=== PATIENT | female | born 1935 | race Caucasian/White ===

== ENCOUNTER 2017-11-29 10:06 | Emergency (ER) | payer MEDICARE ==
[~2017-11-29] VITALS: Ht 160 cm; Wt 65.8 kg
[~2017-11-29 10:06] MED LIST: ALPR.5 PO; LEVCAR2510 PO; Norco 5-325 Ta1 EACH PO; OXYC1TAB11; Ventolin/Prove6.7 GM
[2017-11-29] MEDS ORDERED: ZUBSOLV 1.4-0.1 EACH PO (10:37)
[2017-11-29] MEDS ORDERED: CYCL10 PO (10:38)
[2017-11-29] MEDS ORDERED: Keflex500 MG PO (12:22)
== END 2017-11-29 12:40 | disposition home or self-care (01) ==
LOC: ER 10:06
DX: L03.031 Cellulitis of right toe (principal); J44.9 Chronic obstructive pulmonary disease, unspecified; F17.200 Nicotine dependence, unspecified, uncomplicated; Z79.899 Other long term (current) drug therapy
CPT/HCPCS: 73630; 99282-25

== ENCOUNTER 2018-05-19 10:32 | Emergency (ER) | payer MEDICARE ==
[~2018-05-19] VITALS: Ht 160 cm; Wt 59.0 kg
[~2018-05-19 10:32] MED LIST changes: +CYCL10 PO; +Keflex500 MG PO; +SINEMET PO; +TRAM50 PO; +ZUBSOLV 1.4-0.1 EACH PO
[2018-05-19 11:50] LABS: BASOPHILS ABSOLUTE AUTO 0.11 K/mm3 (0.00-0.23); BASOPHILS PERCENT AUTO 1 % (0-2); EOSINOPHILS ABSOLUTE AUTO 0.08 K/mm3 (0.00-0.68); EOSINOPHILS PERCENT AUTO 1 % (0-6); Hemoglobin 17.7 g/dL (11.5-16.0); IMMATURE GRAN ABSOLUTE AUTO 0.11 K/mm3 (0.00-0.10); IMMATURE GRAN PERCENT AUTO 1 % (0-1); LYMPHOCYTES ABSOLUTE AUTO 1.54 K/mm3 (0.84-5.20); LYMPHOCYTES PERCENT AUTO 9 % (21-46); MONOCYTES ABSOLUTE AUTO 2.47 K/mm3 (0.16-1.47); MONOCYTES PERCENT AUTO 14 % (4-13); Mean Corpuscular HGB 24.4 pg (26.0-34.0); Mean Corpuscular HGB Conc 30.9 g/dL (31.5-36.5); Mean Corpuscular Volume 79 fL (80-100); Mean Platelet Volume 9.1 fL (9.1-12.4); NEUTROPHILS ABSOLUTE AUTO 13.35 K/mm3 (1.96-9.15); NEUTROPHILS PERCENT AUTO 76 % (41-73); Platelet Count 611 K/mm3 (150-400); RDW Coefficient Variation 18.4 % (11.7-14.2); RDW Standard Deviation 48.5 fL (35.1-46.3); Red Blood Cell Count 7.24 M/mm3 (3.80-5.20); White Blood Cell Count 17.66 K/mm3 (4.00-11.30)
[2018-05-19 11:53] LABS: Hematocrit 57.2 % (33.0-51.0)
[2018-05-19 12:12] LABS: Alanine Aminotransfer (ALT/SGP 7 U/L (12-78); Albumin, Blood 3.7 g/dL (3.4-5.0); Albumin/Globulin Ratio 0.8 (0.8-1.8); Alk Phos 63 U/L (50-136); Anion Gap 6 mmol/L (6-16); Aspartate Aminotrans (AST/SGOT 18 U/L (12-37); Bilirubin, Total 0.7 mg/dL (0.1-1.0); Blood Urea Nitrogen 14 mg/dL (8-24); Bun/Creatinine Ratio 19.3 (12.0-20.0); CO2, Blood 29 mmol/L (21-32); Calcium, Blood 8.8 mg/dL (8.5-10.1); Chloride, Blood 97 mmol/L (98-108); Creatinine, Blood 0.73 mg/dL (0.40-1.00); Globulin, Blood 4.6 g/dL (2.2-4.0); Glomerular Filtration Rate >60 (60-); Glucose, Blood 111 mg/dL (70-99); Potassium, Blood 3.7 mmol/L (3.5-5.5); Sodium, Blood 132 mmol/L (136-145); Total Protein, Blood 8.3 g/dL (6.4-8.2)
[2018-05-19] MEDS ORDERED: Augmentin 875-1 EACH PO (12:18)
[2018-05-19] MEDS ORDERED: Norco 5-325 Ta1 EACH PO (12:18)
== END 2018-05-19 12:46 | disposition home or self-care (01) ==
LOC: ER 10:32
PROVIDERS: Emergency Medicine
DX: I73.9 Peripheral vascular disease, unspecified (principal); Z79.899 Other long term (current) drug therapy; J44.9 Chronic obstructive pulmonary disease, unspecified; F17.200 Nicotine dependence, unspecified, uncomplicated
CPT/HCPCS: 36415; 73630; 80053; 85025; 85651; 86140; 96374; 99283-25; J3010

== ENCOUNTER 2019-01-22 15:35 | Emergency (ER) | payer MEDICARE ==
[~2019-01-22] VITALS: Ht 160 cm; Wt 59.0 kg
[~2019-01-22 15:35] MED LIST changes: +Augmentin 875-1 EACH PO
[2019-01-22] MEDS ORDERED: LIDO700A20 TOP (18:00)
== END 2019-01-22 18:39 | disposition home or self-care (01) ==
LOC: ER 15:35
DX: S30.0XXA Contusion of lower back and pelvis, initial encounter (principal); F17.200 Nicotine dependence, unspecified, uncomplicated; Z79.899 Other long term (current) drug therapy; W01.10XA Fall on same level from slipping, tripping and stumbling with subsequent striking against unspecified object, initial encounter
CPT/HCPCS: 72100; 99283-25

== ENCOUNTER → 2019-05-18 | Outpatient (CLI) | payer MEDICARE ==
[~2019-05-18] MED LIST changes: +LIDO700A20 TOP
[2019-05-18 16:47] LABS: Hematocrit 52.5 % (33.0-51.0); Hemoglobin 15.8 g/dL (11.5-16.0); Mean Corpuscular HGB 22.9 pg (26.0-34.0); Mean Corpuscular HGB Conc 30.1 g/dL (31.5-36.5); Mean Corpuscular Volume 76 fL (80-100); Mean Platelet Volume 10.1 fL (9.1-12.4); RDW Coefficient Variation 20.5 % (11.7-14.2); RDW Standard Deviation 51.4 fL (35.1-46.3); White Blood Cell Count 16.02 K/mm3 (4.00-11.30)
[2019-05-18 16:52] LABS: Anion Gap 6 mmol/L (6-16); Blood Urea Nitrogen 14 mg/dL (8-24); Bun/Creatinine Ratio 21.2 (12.0-20.0); CO2, Blood 30 mmol/L (21-32); Calcium, Blood 8.5 mg/dL (8.5-10.1); Chloride, Blood 102 mmol/L (98-108); Creatinine, Blood 0.66 mg/dL (0.40-1.00); Glomerular Filtration Rate >60 (60-); Glucose, Blood 67 mg/dL (70-99); Potassium, Blood 3.5 mmol/L (3.5-5.5); Sodium, Blood 138 mmol/L (136-145)
[2019-05-18 17:18] LABS: Platelet Count 1159 K/mm3 (150-400)
[2019-05-18 17:55] LABS: BAND PERCENT MAN 3 % (0-8); BASOPHILS ABSOLUTE MAN 0.64 K/mm3 (0.00-0.23); BASOPHILS PERCENT MAN 4 % (0-2); EOSINOPHILS PERCENT MAN 0 % (0-6); LYMPHOCYTES ABSOLUTE MAN 3.04 K/mm3 (0.84-5.20); LYMPHOCYTES PERCENT MAN 19 % (21-46); MONOCYTES PERCENT MAN 15 % (4-13); NEUTROPHILS ABSOLUTE MAN 9.93 K/mm3 (1.96-9.15); SEG NEUTROPHILS PERCENT MAN 59 % (41-73); TOTAL CELLS COUNTED 100
== END | disposition home or self-care (01) ==
LOC: LAB EV 16:42 → LAB SHORT 16:42
PROVIDERS: Physician Assistant Surgical
DX: R06.02 Shortness of breath (principal); R06.00 Dyspnea, unspecified
CPT/HCPCS: 80048; 85025

== ENCOUNTER 2019-05-19 10:34 | Emergency (ER) | payer MEDICARE ==
[~2019-05-19] VITALS: Ht 157.5 cm; Wt 56.2 kg
[2019-05-19 11:40] LABS: BASOPHILS ABSOLUTE AUTO 0.18 K/mm3 (0.00-0.23); BASOPHILS PERCENT AUTO 1 % (0-2); EOSINOPHILS ABSOLUTE AUTO 0.21 K/mm3 (0.00-0.68); EOSINOPHILS PERCENT AUTO 1 % (0-6); Hematocrit 53.2 % (33.0-51.0); Hemoglobin 15.6 g/dL (11.5-16.0); IMMATURE GRAN ABSOLUTE AUTO 0.43 K/mm3 (0.00-0.10); IMMATURE GRAN PERCENT AUTO 3 % (0-1); LYMPHOCYTES ABSOLUTE AUTO 2.18 K/mm3 (0.84-5.20); LYMPHOCYTES PERCENT AUTO 13 % (21-46); MONOCYTES PERCENT AUTO 12 % (4-13); Mean Corpuscular HGB 22.5 pg (26.0-34.0); Mean Corpuscular HGB Conc 29.3 g/dL (31.5-36.5); Mean Corpuscular Volume 77 fL (80-100); Mean Platelet Volume 10.1 fL (9.1-12.4); NEUTROPHILS ABSOLUTE AUTO 11.49 K/mm3 (1.96-9.15); NEUTROPHILS PERCENT AUTO 70 % (41-73); RDW Coefficient Variation 19.9 % (11.7-14.2); RDW Standard Deviation 51.6 fL (35.1-46.3); Red Blood Cell Count 6.93 M/mm3 (3.80-5.20); White Blood Cell Count 16.49 K/mm3 (4.00-11.30)
[2019-05-19 11:56] LABS: Platelet Count 1246 K/mm3 (150-400)
[2019-05-19 12:01] LABS: Alanine Aminotransfer (ALT/SGP 14 U/L (12-78); Albumin, Blood 2.8 g/dL (3.4-5.0); Albumin/Globulin Ratio 0.6 (0.8-1.8); Alk Phos 77 U/L (50-136); Anion Gap 4 mmol/L (6-16); Aspartate Aminotrans (AST/SGOT 20 U/L (12-37); Bilirubin, Total 0.3 mg/dL (0.1-1.0); Blood Urea Nitrogen 11 mg/dL (8-24); Bun/Creatinine Ratio 18.2 (12.0-20.0); CO2, Blood 31 mmol/L (21-32); Calcium, Blood 8.6 mg/dL (8.5-10.1); Chloride, Blood 104 mmol/L (98-108); Creatinine, Blood 0.61 mg/dL (0.40-1.00); Globulin, Blood 4.8 g/dL (2.2-4.0); Glomerular Filtration Rate >60 (60-); Glucose, Blood 74 mg/dL (70-99); Potassium, Blood 3.6 mmol/L (3.5-5.5); Sodium, Blood 139 mmol/L (136-145); Total Protein, Blood 7.6 g/dL (6.4-8.2)
== END 2019-05-19 12:28 | disposition home or self-care (01) ==
LOC: ER 10:34
PROVIDERS: Emergency Medicine
DX: J44.0 Chronic obstructive pulmonary disease with (acute) lower respiratory infection (principal); J18.9 Pneumonia, unspecified organism; F17.200 Nicotine dependence, unspecified, uncomplicated; Z79.899 Other long term (current) drug therapy
CPT/HCPCS: 36415; 80053; 85025; 99283

== ENCOUNTER → 2020-11-27 | Outpatient (CLI) | payer MEDICARE | END | disposition home or self-care (01) | LOC: LAB 12:26 | DX: Z51.81 Encounter for therapeutic drug level monitoring (principal); Z79.891 Long term (current) use of opiate analgesic ==

== ENCOUNTER → 2021-01-06 | Outpatient (CLI) | payer MEDICARE ==
[~2021-01-06] MED LIST changes: +ACET325 PO; +ALBU90OI INH; +ASPI81CH PO; +AUGMENTIN XR 11 EACH PO; +AZIT500 PO; +CARBIDOPA-LEVO1 EA19 PO; +LISI20 PO; +PREGABALIN75 MG PO; +VISBIOME PROBIOTIC PO; +ZUBSOLV 1.4-0.1 EACH SL
[2021-01-06 13:30] LABS: U Amphetamine Screen Not Detected; U Barbituate Screen Not Detected; U Benzodiazapine Screen DETECTED; U Buprenorphine Screen Not Detected; U Cannabinoids Screen Not Detected; U Cocaine Screen Not Detected; U Methadone Screen Not Detected; U Methamphetamine Screen Not Detected; U Opiates Screen Not Detected; U Oxycodone Screen Not Detected; U Phencyclidine Screen Not Detected; U Propoxyphene Screen Not Detected
== END | disposition home or self-care (01) ==
LOC: LAB 08:35 → LAB SHORT 08:35 → LAB FUT 01-05 15:50
PROVIDERS: Nurse Practitioner Family
DX: Z51.81 Encounter for therapeutic drug level monitoring (principal); Z79.891 Long term (current) use of opiate analgesic

== ENCOUNTER 2021-01-26 17:16 | Emergency (ER) | payer MEDICARE ==
[~2021-01-26] VITALS: Ht 157.5 cm; Wt 59.0 kg
[~2021-01-26 17:16] MED LIST changes: +CARBIDOPA-LEVO1 EA15 PO; -CARBIDOPA-LEVO1 EA19 PO; +PREG100 PO; -PREGABALIN75 MG PO
[2021-01-26 19:38] LABS: BASOPHILS ABSOLUTE AUTO 0.07 K/mm3 (0.00-0.23); BASOPHILS PERCENT AUTO 0 % (0-2); EOSINOPHILS PERCENT AUTO 0 % (0-6); Hematocrit 33.5 % (33.0-51.0); Hemoglobin 10.5 g/dL (11.5-16.0); IMMATURE GRAN ABSOLUTE AUTO 0.34 K/mm3 (0.00-0.10); IMMATURE GRAN PERCENT AUTO 1 % (0-1); LYMPHOCYTES ABSOLUTE AUTO 0.65 K/mm3 (0.84-5.20); LYMPHOCYTES PERCENT AUTO 3 % (21-46); MONOCYTES PERCENT AUTO 9 % (4-13); Mean Corpuscular HGB Conc 31.3 g/dL (31.5-36.5); Mean Corpuscular Volume 80 fL (80-100); Mean Platelet Volume 10.4 fL (9.1-12.4); NEUTROPHILS ABSOLUTE AUTO 21.65 K/mm3 (1.96-9.15); NEUTROPHILS PERCENT AUTO 87 % (41-73); NRBC ABSOLUTE 0.03 K/mm3 (0.00-0.02); NRBC Auto 0.1 /100 WBC (0.0-0.2); Platelet Count 373 K/mm3 (150-400); RDW Standard Deviation 62.1 fL (35.1-46.3); White Blood Cell Count 24.91 K/mm3 (4.00-11.30)
[2021-01-26 20:14] LABS: Alanine Aminotransfer (ALT/SGP 9 U/L (12-78); Albumin, Blood 2.7 g/dL (3.4-5.0); Albumin/Globulin Ratio 0.7 (0.8-1.8); Alk Phos 68 U/L (50-136); Anion Gap 12 mmol/L (6-16); Aspartate Aminotrans (AST/SGOT 19 U/L (12-37); Bilirubin, Total 0.9 mg/dL (0.1-1.0); Blood Urea Nitrogen 17 mg/dL (8-24); Bun/Creatinine Ratio 26.8 (12.0-20.0); CO2, Blood 24 mmol/L (21-32); Calcium, Blood 8.4 mg/dL (8.5-10.1); Chloride, Blood 90 mmol/L (98-108); Creatinine, Blood 0.63 mg/dL (0.40-1.00); Globulin, Blood 4.1 g/dL (2.2-4.0); Glomerular Filtration Rate >60 (60-); Glucose, Blood 64 mg/dL (70-99); Potassium, Blood 3.1 mmol/L (3.5-5.5); Sodium, Blood 126 mmol/L (136-145); Total Protein, Blood 6.8 g/dL (6.4-8.2)
[2021-01-26] MEDS ORDERED: SULTRIDS PO (21:50)
== END 2021-01-26 22:57 | disposition home or self-care (01) ==
LOC: ER 17:16
PROVIDERS: Physician Assistant
DX: I96 Gangrene, not elsewhere classified (principal); J44.9 Chronic obstructive pulmonary disease, unspecified; F41.9 Anxiety disorder, unspecified; I73.9 Peripheral vascular disease, unspecified; F17.210 Nicotine dependence, cigarettes, uncomplicated; Z79.82 Long term (current) use of aspirin; Z79.899 Other long term (current) drug therapy
CPT/HCPCS: 36415; 73620; 80053; 85025; 85651; 86140; 96360; 99284-25; A9270; J7030

== ENCOUNTER 2021-01-29 11:09 | Inpatient (IN) | payer MEDICARE ==
[~2021-01-29] VITALS: Ht 157.5 cm; Wt 59.0 kg
[~2021-01-29 11:09] MED LIST changes: +SULTRIDS PO
[2021-01-29 12:05] LABS: BASOPHILS ABSOLUTE AUTO 0.06 K/mm3 (0.00-0.23); BASOPHILS PERCENT AUTO 0 % (0-2); EOSINOPHILS ABSOLUTE AUTO 0.01 K/mm3 (0.00-0.68); EOSINOPHILS PERCENT AUTO 0 % (0-6); Hematocrit 27.3 % (33.0-51.0); Hemoglobin 8.7 g/dL (11.5-16.0); IMMATURE GRAN ABSOLUTE AUTO 0.47 K/mm3 (0.00-0.10); IMMATURE GRAN PERCENT AUTO 2 % (0-1); LYMPHOCYTES PERCENT AUTO 3 % (21-46); MONOCYTES ABSOLUTE AUTO 1.47 K/mm3 (0.16-1.47); MONOCYTES PERCENT AUTO 8 % (4-13); Mean Corpuscular HGB 25.1 pg (26.0-34.0); Mean Corpuscular HGB Conc 31.9 g/dL (31.5-36.5); Mean Corpuscular Volume 79 fL (80-100); Mean Platelet Volume 10.2 fL (9.1-12.4); NEUTROPHILS PERCENT AUTO 87 % (41-73); Platelet Count 444 K/mm3 (150-400); RDW Coefficient Variation 21.8 % (11.7-14.2); RDW Standard Deviation 61.7 fL (35.1-46.3); Red Blood Cell Count 3.46 M/mm3 (3.80-5.20); White Blood Cell Count 19.31 K/mm3 (4.00-11.30)
[2021-01-29 12:23] LABS: Albumin, Blood 2.9 g/dL (3.4-5.0); Albumin/Globulin Ratio 0.8 (0.8-1.8); Bilirubin, Total 0.4 mg/dL (0.1-1.0); Bun/Creatinine Ratio 12.6 (12.0-20.0); Calcium, Blood 8.3 mg/dL (8.5-10.1); Creatinine, Blood 1.75 mg/dL (0.40-1.00); Globulin, Blood 3.5 g/dL (2.2-4.0); Potassium, Blood 3.3 mmol/L (3.5-5.5); Total Protein, Blood 6.4 g/dL (6.4-8.2)
[2021-01-29 15:04] LABS: Source, Urine Clean Catch
[2021-01-29 15:08] LABS: Appearance, Urine Clear (Clear); Blood, Urine 2+ (Neg); Color, Urine Amber (P-Yellow); Glucose Qualitative, Urine Neg (Neg); Ketones, Urine 2+ (Neg); Leukocyte Esterase, Urine 1+ (Neg); Nitrite, Urine Neg (Neg); Protein, Urine 2+ (Neg); Specific Gravity, Urine 1.015 (1.003-1.022); Urobilinogen, Urine 2+ (Normal)
[2021-01-29 15:17] LABS: Bilirubin, Urine 1+ (Neg)
[2021-01-29 15:18] LABS: Bacteria Not Seen /hpf; Squamous Epithelial Cells Rare /hpf (Few); White Blood Cells, Urine 0-2 /hpf (0-5)
[2021-01-29 17:24] LABS: Percent Saturation 47.1 % (15.0-50.0)
[2021-01-29 17:26] LABS: International Normalized Ratio 1.12
[2021-01-29 17:58] LABS: SARS-Cov-2 (COVID-19) PCR, MMC NEGATIVE (NEGATIVE)
[2021-01-29 22:05] LABS: Hematocrit 25.7 % (33.0-51.0); Hemoglobin 7.8 g/dL (11.5-16.0)
[2021-01-29 23:53] LABS: Source, Urine Catheter
[2021-01-29 23:57] LABS: Appearance, Urine Clear (Clear); Blood, Urine 2+ (Neg); Color, Urine Amber (P-Yellow); Glucose Qualitative, Urine Neg (Neg); Ketones, Urine 2+ (Neg); Leukocyte Esterase, Urine 2+ (Neg); Nitrite, Urine Neg (Neg); Protein, Urine 2+ (Neg); Urobilinogen, Urine 1+ (Normal); pH, Urine 6.5 (5.0-8.0)
[2021-01-29 23:58] LABS: Bilirubin, Urine 1+ (Neg)
[2021-01-30 00:06] LABS: Bacteria Mod /hpf; Hyaline Casts 0-2 /lpf (0-2); Red Blood Cells, Urine 0-2 /hpf (0-2); Squamous Epithelial Cells Few /hpf (Few)
[2021-01-30 00:08] LABS: U Amphetamine Screen Not Detected; U Barbituate Screen Not Detected; U Benzodiazapine Screen DETECTED; U Buprenorphine Screen Not Detected; U Cannabinoids Screen Not Detected; U Cocaine Screen Not Detected; U Methadone Screen Not Detected; U Methamphetamine Screen Not Detected; U Opiates Screen DETECTED; U Oxycodone Screen Not Detected; U Phencyclidine Screen Not Detected; U Propoxyphene Screen Not Detected
[2021-01-30 03:45] LABS: BASOPHILS ABSOLUTE AUTO 0.06 K/mm3 (0.00-0.23); BASOPHILS PERCENT AUTO 0 % (0-2); EOSINOPHILS ABSOLUTE AUTO 0.12 K/mm3 (0.00-0.68); EOSINOPHILS PERCENT AUTO 1 % (0-6); Hematocrit 25.9 % (33.0-51.0); Hemoglobin 8.2 g/dL (11.5-16.0); IMMATURE GRAN ABSOLUTE AUTO 0.58 K/mm3 (0.00-0.10); IMMATURE GRAN PERCENT AUTO 3 % (0-1); LYMPHOCYTES ABSOLUTE AUTO 1.11 K/mm3 (0.84-5.20); LYMPHOCYTES PERCENT AUTO 6 % (21-46); MONOCYTES ABSOLUTE AUTO 1.21 K/mm3 (0.16-1.47); MONOCYTES PERCENT AUTO 6 % (4-13); Mean Corpuscular HGB 25.4 pg (26.0-34.0); Mean Corpuscular HGB Conc 31.7 g/dL (31.5-36.5); Mean Corpuscular Volume 80 fL (80-100); Mean Platelet Volume 9.8 fL (9.1-12.4); NEUTROPHILS ABSOLUTE AUTO 16.85 K/mm3 (1.96-9.15); NEUTROPHILS PERCENT AUTO 85 % (41-73); Platelet Count 567 K/mm3 (150-400); RDW Coefficient Variation 22.1 % (11.7-14.2); RDW Standard Deviation 63.4 fL (35.1-46.3); Red Blood Cell Count 3.23 M/mm3 (3.80-5.20); White Blood Cell Count 19.93 K/mm3 (4.00-11.30)
[2021-01-30 04:05] LABS: Albumin, Blood 2.2 g/dL (3.4-5.0); Albumin/Globulin Ratio 0.6 (0.8-1.8); Bilirubin, Total 0.4 mg/dL (0.1-1.0); Bun/Creatinine Ratio 11.6 (12.0-20.0); Calcium, Blood 7.7 mg/dL (8.5-10.1); Creatinine, Blood 1.64 mg/dL (0.40-1.00); Globulin, Blood 3.5 g/dL (2.2-4.0); Potassium, Blood 3.6 mmol/L (3.5-5.5); Total Protein, Blood 5.7 g/dL (6.4-8.2)
[2021-01-30 11:41] LABS: Base Excess Venous -0.6 mmol/L; PCO2 Venous 38.1 mmHg (38-42); pH Blood Venous 7.41 (7.34-7.37)
[2021-01-30 12:43] LABS: Vancomycin, Random 7.7 ug/mL
[2021-01-31 04:12] LABS: BASOPHILS ABSOLUTE AUTO 0.03 K/mm3 (0.00-0.23); BASOPHILS PERCENT AUTO 0 % (0-2); EOSINOPHILS ABSOLUTE AUTO 0.01 K/mm3 (0.00-0.68); EOSINOPHILS PERCENT AUTO 0 % (0-6); Hematocrit 23.8 % (33.0-51.0); Hemoglobin 7.6 g/dL (11.5-16.0); IMMATURE GRAN ABSOLUTE AUTO 0.51 K/mm3 (0.00-0.10); IMMATURE GRAN PERCENT AUTO 3 % (0-1); LYMPHOCYTES ABSOLUTE AUTO 0.27 K/mm3 (0.84-5.20); LYMPHOCYTES PERCENT AUTO 2 % (21-46); MONOCYTES ABSOLUTE AUTO 0.74 K/mm3 (0.16-1.47); MONOCYTES PERCENT AUTO 4 % (4-13); Mean Corpuscular HGB 25.1 pg (26.0-34.0); Mean Corpuscular HGB Conc 31.9 g/dL (31.5-36.5); Mean Corpuscular Volume 79 fL (80-100); Mean Platelet Volume 10.3 fL (9.1-12.4); NEUTROPHILS ABSOLUTE AUTO 15.69 K/mm3 (1.96-9.15); NEUTROPHILS PERCENT AUTO 91 % (41-73); Platelet Count 380 K/mm3 (150-400); RDW Coefficient Variation 21.9 % (11.7-14.2); RDW Standard Deviation 61.2 fL (35.1-46.3); Red Blood Cell Count 3.03 M/mm3 (3.80-5.20); White Blood Cell Count 17.25 K/mm3 (4.00-11.30)
[2021-01-31 04:37] LABS: Alanine Aminotransfer (ALT/SGP 7 U/L (12-78); Albumin/Globulin Ratio 0.6 (0.8-1.8); Alk Phos 53 U/L (50-136); Anion Gap 7 mmol/L (6-16); Aspartate Aminotrans (AST/SGOT 33 U/L (12-37); Bilirubin, Total 0.3 mg/dL (0.1-1.0); Blood Urea Nitrogen 11 mg/dL (8-24); Bun/Creatinine Ratio 10.3 (12.0-20.0); CO2, Blood 25 mmol/L (21-32); Calcium, Blood 7.6 mg/dL (8.5-10.1); Chloride, Blood 99 mmol/L (98-108); Creatinine, Blood 1.07 mg/dL (0.40-1.00); Globulin, Blood 3.4 g/dL (2.2-4.0); Glomerular Filtration Rate 49 (60-); Glucose, Blood 97 mg/dL (70-99); Potassium, Blood 3.5 mmol/L (3.5-5.5); Sodium, Blood 131 mmol/L (136-145); Total Protein, Blood 5.4 g/dL (6.4-8.2); Vancomycin, Random 13.5 ug/mL
[2021-02-01 04:16] LABS: Hematocrit 23.6 % (33.0-51.0); Hemoglobin 7.5 g/dL (11.5-16.0); Mean Corpuscular HGB 25.3 pg (26.0-34.0); Mean Corpuscular HGB Conc 31.8 g/dL (31.5-36.5); Mean Corpuscular Volume 80 fL (80-100); Mean Platelet Volume 10.1 fL (9.1-12.4); Platelet Count 300 K/mm3 (150-400); RDW Coefficient Variation 21.8 % (11.7-14.2); RDW Standard Deviation 62.1 fL (35.1-46.3); Red Blood Cell Count 2.96 M/mm3 (3.80-5.20)
[2021-02-01 04:43] LABS: Alanine Aminotransfer (ALT/SGP <6 U/L (12-78); Albumin, Blood 1.9 g/dL (3.4-5.0); Albumin/Globulin Ratio 0.6 (0.8-1.8); Alk Phos 54 U/L (50-136); Anion Gap 5 mmol/L (6-16); Aspartate Aminotrans (AST/SGOT 25 U/L (12-37); Bilirubin, Total 0.3 mg/dL (0.1-1.0); Blood Urea Nitrogen 9 mg/dL (8-24); Bun/Creatinine Ratio 10.7 (12.0-20.0); CO2, Blood 28 mmol/L (21-32); Calcium, Blood 7.4 mg/dL (8.5-10.1); Chloride, Blood 100 mmol/L (98-108); Creatinine, Blood 0.84 mg/dL (0.40-1.00); Globulin, Blood 3.2 g/dL (2.2-4.0); Glomerular Filtration Rate >60 (60-); Glucose, Blood 61 mg/dL (70-99); Potassium, Blood 3.1 mmol/L (3.5-5.5); Sodium, Blood 133 mmol/L (136-145); Total Protein, Blood 5.1 g/dL (6.4-8.2); Vancomycin, Random 15.7 ug/mL
[2021-02-02 04:19] LABS: Hematocrit 24.4 % (33.0-51.0); Hemoglobin 7.5 g/dL (11.5-16.0); Mean Corpuscular HGB 24.7 pg (26.0-34.0); Mean Corpuscular HGB Conc 30.7 g/dL (31.5-36.5); Mean Corpuscular Volume 80 fL (80-100); Mean Platelet Volume 9.4 fL (9.1-12.4); Platelet Count 235 K/mm3 (150-400); RDW Coefficient Variation 22.4 % (11.7-14.2); RDW Standard Deviation 63.6 fL (35.1-46.3); Red Blood Cell Count 3.04 M/mm3 (3.80-5.20); White Blood Cell Count 14.49 K/mm3 (4.00-11.30)
[2021-02-02 04:50] LABS: Magnesium, Blood 1.7 mg/dL (1.6-2.4)
[2021-02-02 05:00] LABS: Alanine Aminotransfer (ALT/SGP <6 U/L (12-78); Albumin, Blood 1.7 g/dL (3.4-5.0); Albumin/Globulin Ratio 0.5 (0.8-1.8); Alk Phos 56 U/L (50-136); Anion Gap 5 mmol/L (6-16); Aspartate Aminotrans (AST/SGOT 17 U/L (12-37); Bilirubin, Total 0.3 mg/dL (0.1-1.0); Blood Urea Nitrogen 6 mg/dL (8-24); CO2, Blood 28 mmol/L (21-32); Calcium, Blood 7.4 mg/dL (8.5-10.1); Chloride, Blood 100 mmol/L (98-108); Creatinine, Blood 0.75 mg/dL (0.40-1.00); Globulin, Blood 3.1 g/dL (2.2-4.0); Glomerular Filtration Rate >60 (60-); Glucose, Blood 65 mg/dL (70-99); Potassium, Blood 3.9 mmol/L (3.5-5.5); Sodium, Blood 133 mmol/L (136-145); Total Protein, Blood 4.8 g/dL (6.4-8.2)
[2021-02-03 04:27] LABS: Hematocrit 25.8 % (33.0-51.0); Mean Corpuscular HGB 24.6 pg (26.0-34.0); Mean Corpuscular Volume 79 fL (80-100); Mean Platelet Volume 9.9 fL (9.1-12.4); Platelet Count 300 K/mm3 (150-400); RDW Coefficient Variation 22.3 % (11.7-14.2); RDW Standard Deviation 61.7 fL (35.1-46.3); Red Blood Cell Count 3.25 M/mm3 (3.80-5.20); White Blood Cell Count 15.68 K/mm3 (4.00-11.30)
[2021-02-03 04:48] LABS: Anion Gap 5 mmol/L (6-16); Blood Urea Nitrogen 6 mg/dL (8-24); Bun/Creatinine Ratio 8.4 (12.0-20.0); CO2, Blood 29 mmol/L (21-32); Calcium, Blood 7.8 mg/dL (8.5-10.1); Chloride, Blood 99 mmol/L (98-108); Creatinine, Blood 0.72 mg/dL (0.40-1.00); Glomerular Filtration Rate >60 (60-); Glucose, Blood 75 mg/dL (70-99); Potassium, Blood 3.8 mmol/L (3.5-5.5); Sodium, Blood 133 mmol/L (136-145)
[2021-02-04 04:51] LABS: Hematocrit 25.2 % (33.0-51.0); Hemoglobin 8.1 g/dL (11.5-16.0); Mean Corpuscular HGB 25.4 pg (26.0-34.0); Mean Corpuscular HGB Conc 32.1 g/dL (31.5-36.5); Mean Corpuscular Volume 79 fL (80-100); Mean Platelet Volume 10.6 fL (9.1-12.4); Platelet Count 310 K/mm3 (150-400); RDW Coefficient Variation 22.3 % (11.7-14.2); RDW Standard Deviation 62.4 fL (35.1-46.3); Red Blood Cell Count 3.19 M/mm3 (3.80-5.20); White Blood Cell Count 16.39 K/mm3 (4.00-11.30)
[2021-02-04 05:14] LABS: Albumin, Blood 1.8 g/dL (3.4-5.0); Anion Gap 7 mmol/L (6-16); Blood Urea Nitrogen 10 mg/dL (8-24); Bun/Creatinine Ratio 13.4 (12.0-20.0); CHOL/HDL RATIO 3.4; CO2, Blood 29 mmol/L (21-32); Chloride, Blood 99 mmol/L (98-108); Cholesterol 127 mg/dL (50-200); Creatinine, Blood 0.75 mg/dL (0.40-1.00); Glomerular Filtration Rate >60 (60-); Glucose, Blood 132 mg/dL (70-99); HDL Cholesterol 37 mg/dL (>39); LDL/HDL RATIO 1.6; Low Density Lipoprotein Chol 59 mg/dL (0-110); Phosphorus, Blood 1.7 mg/dL (2.5-4.9); Potassium, Blood 3.6 mmol/L (3.5-5.5); Sodium, Blood 135 mmol/L (136-145); Triglycerides 156 mg/dL (30-160); Very Low Density Lipoprot Chol 31 mg/dL (6-32)
[2021-02-05 08:47] LABS: Hematocrit 23.5 % (33.0-51.0); Hemoglobin 7.5 g/dL (11.5-16.0); Mean Corpuscular HGB 25.4 pg (26.0-34.0); Mean Corpuscular HGB Conc 31.9 g/dL (31.5-36.5); Mean Corpuscular Volume 80 fL (80-100); Mean Platelet Volume 10.2 fL (9.1-12.4); Platelet Count 375 K/mm3 (150-400); RDW Coefficient Variation 22.2 % (11.7-14.2); RDW Standard Deviation 62.8 fL (35.1-46.3); Red Blood Cell Count 2.95 M/mm3 (3.80-5.20); White Blood Cell Count 18.61 K/mm3 (4.00-11.30)
[2021-02-05 09:06] LABS: Albumin, Blood 1.8 g/dL (3.4-5.0); Anion Gap 7 mmol/L (6-16); Blood Urea Nitrogen 11 mg/dL (8-24); Bun/Creatinine Ratio 17.3 (12.0-20.0); CO2, Blood 29 mmol/L (21-32); Calcium, Blood 7.7 mg/dL (8.5-10.1); Chloride, Blood 98 mmol/L (98-108); Creatinine, Blood 0.64 mg/dL (0.40-1.00); Glomerular Filtration Rate >60 (60-); Glucose, Blood 90 mg/dL (70-99); Phosphorus, Blood 2.8 mg/dL (2.5-4.9); Potassium, Blood 3.8 mmol/L (3.5-5.5); Sodium, Blood 134 mmol/L (136-145)
[2021-02-06 07:54] LABS: Anion Gap 6 mmol/L (6-16); Blood Urea Nitrogen 10 mg/dL (8-24); CO2, Blood 30 mmol/L (21-32); Calcium, Blood 7.9 mg/dL (8.5-10.1); Chloride, Blood 99 mmol/L (98-108); Creatinine, Blood 0.77 mg/dL (0.40-1.00); Glomerular Filtration Rate >60 (60-); Glucose, Blood 79 mg/dL (70-99); Phosphorus, Blood 2.9 mg/dL (2.5-4.9); Potassium, Blood 3.6 mmol/L (3.5-5.5); Sodium, Blood 135 mmol/L (136-145)
[2021-02-06] MEDS ORDERED: ACET325 PO (11:28)
[2021-02-06] MEDS ORDERED: VISBIOME 112.51 EACH PO (11:29)
[2021-02-06] MEDS ORDERED: AMOCLA875 PO (11:30)
== END 2021-02-06 12:37 | disposition home health service (06) | DRG 853 ==
LOC: ER 11:09 → PCU 19:19 → MEDS 02-03 16:45
PROVIDERS: Emergency Medicine; Internal Medicine; Podiatrist Foot & Ankle Surgery; ADMIT Hospitalist
PROC: 02HV33Z Insertion of Infusion Device into Superior Vena Cava, Percutaneous Approach (ICD-10-PCS; 2021-01-29)
PROC: 0Y6S0Z0 Detachment at Left 2nd Toe, Complete, Open Approach (ICD-10-PCS; 2021-01-30)
PROC: 3E033XZ Introduction of Vasopressor into Peripheral Vein, Percutaneous Approach (ICD-10-PCS; 2021-01-30)
PROC: 0Y6Q0Z0 Detachment at Left 1st Toe, Complete, Open Approach (ICD-10-PCS; principal; 2021-01-30 13:00)
DX: A41.52 Sepsis due to Pseudomonas (principal); G92.8 Other toxic encephalopathy; E43 Unspecified severe protein-calorie malnutrition; R65.21 Severe sepsis with septic shock; N17.9 Acute kidney failure, unspecified; E87.1 Hypo-osmolality and hyponatremia; I70.262 Atherosclerosis of native arteries of extremities with gangrene, left leg; Z20.822 Contact with and (suspected) exposure to COVID-19; D63.8 Anemia in other chronic diseases classified elsewhere; Z68.23 Body mass index [BMI] 23.0-23.9, adult; S09.90XA Unspecified injury of head, initial encounter; J44.9 Chronic obstructive pulmonary disease, unspecified; E87.6 Hypokalemia; E83.39 Other disorders of phosphorus metabolism; S70.02XA Contusion of left hip, initial encounter; F41.9 Anxiety disorder, unspecified; I73.9 Peripheral vascular disease, unspecified; G25.81 Restless legs syndrome; E55.9 Vitamin D deficiency, unspecified; F17.210 Nicotine dependence, cigarettes, uncomplicated; Z79.899 Other long term (current) drug therapy; Z89.421 Acquired absence of other right toe(s); W19.XXXA Unspecified fall, initial encounter
CPT/HCPCS: 36415; 36556; 51701; 71045; 71046; 72192; 73552; 73630; 76882; 80048; 80053; 80061; 80069; 80202; 81001; 82533; 82607; 82728; 82746; 82803; 82947; 83540; 83550; 83605; 83735; 83880; 84100; 84145; 84443; 85014; 85018; 85025; 85027; 85610; 85730; 86140; 86850; 86900; 86901; 87040; 87077; 87086; 87186; 88300; 88311; 93005; 93010; 93306; 94640; 94760; 94762; 96361-59; 96365-59; 96366-59; 96375-59; 97110; 97162; 97530; 97530-CQ; 99284-25; A9270; C1751; C9113; G0480; J0690; J0696; J1100; J1885; J1940; J2370; J2405; J2543; J2704; J3010; J3370; J3480; J7030; J7040; J7042; J7050; J7060; J7120; U0004

== ENCOUNTER → 2021-03-23 | Outpatient (CLI) | payer MEDICARE ==
[~2021-03-23] MED LIST changes: +AMOCLA875 PO; +VISBIOME 112.51 EACH PO
[2021-03-23 15:12] LABS: U Amphetamine Screen Not Detected; U Barbituate Screen Not Detected; U Benzodiazapine Screen DETECTED; U Buprenorphine Screen Not Detected; U Cannabinoids Screen Not Detected; U Cocaine Screen Not Detected; U Methadone Screen Not Detected; U Methamphetamine Screen Not Detected; U Opiates Screen DETECTED; U Oxycodone Screen Not Detected; U Phencyclidine Screen Not Detected; U Propoxyphene Screen Not Detected
== END | disposition home or self-care (01) ==
LOC: LAB 13:53 → LAB SHORT 13:53
PROVIDERS: Nurse Practitioner Family
DX: Z51.81 Encounter for therapeutic drug level monitoring (principal); Z79.891 Long term (current) use of opiate analgesic

== ENCOUNTER → 2021-07-20 | Outpatient (CLI) | payer MEDICARE ==
[2021-07-20 13:45] LABS: U Amphetamine Screen Not Detected
[2021-07-20 13:46] LABS: U Barbituate Screen Not Detected; U Benzodiazapine Screen DETECTED; U Buprenorphine Screen Not Detected; U Cannabinoids Screen Not Detected; U Cocaine Screen Not Detected; U Methadone Screen Not Detected; U Methamphetamine Screen Not Detected; U Opiates Screen DETECTED; U Oxycodone Screen Not Detected; U Phencyclidine Screen Not Detected; U Propoxyphene Screen Not Detected
== END ==
LOC: LAB SHORT 12:42
PROVIDERS: Family Medicine
DX: Z79.891 Long term (current) use of opiate analgesic (principal)

== ENCOUNTER 2021-07-27 12:06 | Day surgery (SDC) | payer MEDICARE | END 2021-07-27 23:42 | disposition home or self-care (01) | LOC: WOUND 12:06 | DX: S98.132D Complete traumatic amputation of one left lesser toe, subsequent encounter (principal); I73.9 Peripheral vascular disease, unspecified; F17.210 Nicotine dependence, cigarettes, uncomplicated; J44.9 Chronic obstructive pulmonary disease, unspecified; I10 Essential (primary) hypertension; Z99.81 Dependence on supplemental oxygen; Z91.013 Allergy to seafood | CPT/HCPCS: A9270 ==

== ENCOUNTER 2021-08-03 02:14 | Day surgery (SDC) | payer MEDICARE | END 2021-08-03 23:35 | disposition home or self-care (01) | LOC: WOUND 02:14 | DX: S80.812A Abrasion, left lower leg, initial encounter (principal); S98.132A Complete traumatic amputation of one left lesser toe, initial encounter; F17.200 Nicotine dependence, unspecified, uncomplicated; J44.9 Chronic obstructive pulmonary disease, unspecified; I96 Gangrene, not elsewhere classified | CPT/HCPCS: A9270 ==

== ENCOUNTER 2021-08-14 00:31 | Day surgery (SDC) | payer MEDICARE | END 2021-08-14 23:19 | disposition home or self-care (01) | LOC: WOUND 00:31 | DX: S98.132D Complete traumatic amputation of one left lesser toe, subsequent encounter (principal); I73.9 Peripheral vascular disease, unspecified; I95.9 Hypotension, unspecified | CPT/HCPCS: G0463 ==

== ENCOUNTER 2021-08-28 01:02 | Day surgery (SDC) | payer MEDICARE | END 2021-08-28 23:00 | disposition home or self-care (01) | LOC: WOUND 01:02 | DX: S98.132A Complete traumatic amputation of one left lesser toe, initial encounter (principal); I96 Gangrene, not elsewhere classified; J44.9 Chronic obstructive pulmonary disease, unspecified; Z99.81 Dependence on supplemental oxygen | CPT/HCPCS: G0463 ==

== ENCOUNTER 2021-09-18 01:57 | Day surgery (SDC) | payer MEDICARE | END 2021-09-18 23:16 | disposition home or self-care (01) | LOC: WOUND 01:57 | DX: S98.132D Complete traumatic amputation of one left lesser toe, subsequent encounter (principal); I96 Gangrene, not elsewhere classified; F17.200 Nicotine dependence, unspecified, uncomplicated; J44.9 Chronic obstructive pulmonary disease, unspecified | CPT/HCPCS: A9270; G0463 ==

== ENCOUNTER → 2021-10-28 | Outpatient (CLI) | payer MEDICARE | END | disposition home or self-care (01) | LOC: LAB SHORT 12:58 → LAB 12:58 | DX: N39.0 Urinary tract infection, site not specified (principal) | CPT/HCPCS: 87077; 87086; 87186 ==

== ENCOUNTER 2021-11-11 19:15 | Inpatient (IN) | payer MEDICARE ==
[~2021-11-11] VITALS: Ht 157.5 cm; Wt 55.8 kg
[2021-11-11 19:56] LABS: BASOPHILS ABSOLUTE AUTO 0.08 K/mm3 (0.00-0.23); BASOPHILS PERCENT AUTO 1 % (0-2); EOSINOPHILS ABSOLUTE AUTO 0.03 K/mm3 (0.00-0.68); EOSINOPHILS PERCENT AUTO 0 % (0-6); Hematocrit 33.9 % (33.0-51.0); Hemoglobin 10.3 g/dL (11.5-16.0); IMMATURE GRAN ABSOLUTE AUTO 0.42 K/mm3 (0.00-0.10); IMMATURE GRAN PERCENT AUTO 3 % (0-1); LYMPHOCYTES ABSOLUTE AUTO 0.71 K/mm3 (0.84-5.20); LYMPHOCYTES PERCENT AUTO 5 % (21-46); MONOCYTES ABSOLUTE AUTO 1.32 K/mm3 (0.16-1.47); MONOCYTES PERCENT AUTO 10 % (4-13); Mean Corpuscular HGB 23.4 pg (26.0-34.0); Mean Corpuscular HGB Conc 30.4 g/dL (31.5-36.5); Mean Corpuscular Volume 77 fL (80-100); NEUTROPHILS ABSOLUTE AUTO 11.38 K/mm3 (1.96-9.15); NEUTROPHILS PERCENT AUTO 82 % (41-73); Platelet Count 287 K/mm3 (150-400); RDW Coefficient Variation 20.4 % (11.7-14.2); Red Blood Cell Count 4.41 M/mm3 (3.80-5.20); White Blood Cell Count 13.94 K/mm3 (4.00-11.30)
[2021-11-11 20:02] LABS: Mean Platelet Volume 10.3 fL (9.1-12.4)
[2021-11-11 20:10] LABS: Albumin/Globulin Ratio 0.8 (0.8-1.8); Bilirubin, Total 0.5 mg/dL (0.1-1.0); Bun/Creatinine Ratio 22.3 (12.0-20.0); Creatinine, Blood 0.76 mg/dL (0.40-1.00); Magnesium, Blood 1.9 mg/dL (1.6-2.4); Potassium, Blood 4.4 mmol/L (3.5-5.5)
[2021-11-11 23:25] LABS: Influenza A, PCR NEGATIVE (NEGATIVE); Influenza B, PCR NEGATIVE (NEGATIVE); Resp Syncytial Virus, PCR NEGATIVE (NEGATIVE); SARS-Cov-2 (COVID-19) PCR, MMC NEGATIVE (NEGATIVE)
--- NOTE | 2021-11-12 00:09 | NUR ---
ADMIT RECEIVED FROM ER VIA GURNEY. AWAKE AND ALERT. ORIENTED TO SELF, PLACE, AND MONTH/YEAR. SLOW VERBAL RESPONSE NOTED. SLIGHTLY FORGETFUL. COOPERATIVE WITH CARE. MOVES ALL EXTREMITIES WEAKLY. ASSISTS WITH REPOSITIONING. INCONTINENT OF URINE. MONITOR SHOWS NSR, RATE 70s. O2 SATS STABLE. RESPIRATIONS EVEN AND UNLABORED. OCCASIONAL MOIST NON-PRODUCTIVE COUGH NOTED. BRUISING NOTED ON RIGHT LATTER DAY/FOREHEAD. SCATTERED BRUISES NOTED WELL. LARGE OLDER SKIN TEAR NOTED ON RIGHT UPPER ARM. LEFT AXILLA IS REDDENED AND EXCORIATED. LOWER ABDOMEN IS REDDENED AND HAS SEVERAL OPEN SORES "FROM PICKING." BILATERAL UPPER ARMS ARE TREMULOUS WHEN HOLDING THEM UP. SEE ADMIT ASSESSMENT FOR FULL ASSESSMENT.
--- NOTE | 2021-11-12 01:30 | NUR ---
SEIZURE AT APPROXIMATELY 0118. PT HAD A SEIZURE LASTING APPROXIMATELY 2 MINUTES, STARTING WITH ABSENT GAZE AND RIGHT UPPER ARM FLAILING, FOLLOWED BY JAW CLENCHING AND WHOLE BODY STIFFENING. DR. LOPEZ NOTIFIED OF SEIZURE AND ORDERS GIVEN FOR KEPPRA AND PRN ATIVAN. PT IS NOW POSTICTAL.
[2021-11-12 06:11] LABS: BASOPHILS ABSOLUTE AUTO 0.08 K/mm3 (0.00-0.23); BASOPHILS PERCENT AUTO 1 % (0-2); EOSINOPHILS ABSOLUTE AUTO 0.02 K/mm3 (0.00-0.68); EOSINOPHILS PERCENT AUTO 0 % (0-6); Hematocrit 26.5 % (33.0-51.0); Hemoglobin 8.2 g/dL (11.5-16.0); IMMATURE GRAN ABSOLUTE AUTO 0.43 K/mm3 (0.00-0.10); IMMATURE GRAN PERCENT AUTO 3 % (0-1); LYMPHOCYTES ABSOLUTE AUTO 0.71 K/mm3 (0.84-5.20); LYMPHOCYTES PERCENT AUTO 5 % (21-46); MONOCYTES ABSOLUTE AUTO 1.29 K/mm3 (0.16-1.47); MONOCYTES PERCENT AUTO 10 % (4-13); Mean Corpuscular HGB 23.6 pg (26.0-34.0); Mean Corpuscular HGB Conc 30.9 g/dL (31.5-36.5); Mean Corpuscular Volume 76 fL (80-100); Mean Platelet Volume 10.8 fL (9.1-12.4); NEUTROPHILS ABSOLUTE AUTO 10.73 K/mm3 (1.96-9.15); NEUTROPHILS PERCENT AUTO 81 % (41-73); Platelet Count 243 K/mm3 (150-400); RDW Coefficient Variation 20.3 % (11.7-14.2); RDW Standard Deviation 56.6 fL (35.1-46.3); Red Blood Cell Count 3.47 M/mm3 (3.80-5.20); White Blood Cell Count 13.26 K/mm3 (4.00-11.30)
--- NOTE | 2021-11-12 06:21 | NUR ---
SHIFT SUMMARY PT IS MORE CONFUSED THIS AM. ORIENTED TO SELF, PLACE, MONTH/YEAR. RESTLESS AT TIMES. FOLLOWS SIMPLE DIRECTIONS. COOPERATIVE WITH CARE, BUT ALSO OCCASIONALLY UNKNOWNINGLY INTERFERES WITH CARE. MOVES ALL EXTREMITES WEAKLY. APPROXIMATE 2 MINUTE SEIZURE OCCURRED AROUND 0118- ATIVAN 1MG IV GIVEN. ALSO STARTED KEPPRA IV PER ORDER. NS INFUSING AT 75CC/HR X 1L PER ORDER. REMAINED IN NSR, RATE 70s. BP STABLE. AFEBRILE. PLACED ON 2L NC AFTER SEIZURE- SATS STABLE. RESPIRATIONS EVEN AND UNLABORED. NPO. INCONTINENT OF URINE- ATTENDS IN PLACE. EEG AND ECHO ORDERED FOR THIS AM. WILL REPORT TO ONCOMING RN WHEN AVAILABLE.
[2021-11-12 06:30] LABS: Alanine Aminotransfer (ALT/SGP <6 U/L (12-78); Albumin, Blood 2.3 g/dL (3.4-5.0); Albumin/Globulin Ratio 0.7 (0.8-1.8); Alk Phos 68 U/L (50-136); Anion Gap 5 mmol/L (6-16); Aspartate Aminotrans (AST/SGOT 24 U/L (12-37); Bilirubin, Total 0.4 mg/dL (0.1-1.0); Blood Urea Nitrogen 13 mg/dL (8-24); Bun/Creatinine Ratio 17.1 (12.0-20.0); CO2, Blood 29 mmol/L (21-32); Calcium, Blood 8.2 mg/dL (8.5-10.1); Chloride, Blood 100 mmol/L (98-108); Creatinine, Blood 0.76 mg/dL (0.40-1.00); Globulin, Blood 3.4 g/dL (2.2-4.0); Glomerular Filtration Rate 77 (60-); Glucose, Blood 77 mg/dL (70-99); Potassium, Blood 4.4 mmol/L (3.5-5.5); Sodium, Blood 134 mmol/L (136-145); Total Protein, Blood 5.7 g/dL (6.4-8.2)
[2021-11-12 06:49] LABS: Creatine Kinase MB 6.4 ng/mL (0.0-3.6); Creatine Kinase MB Index 2.7 (0.0-4.0)
--- NOTE | 2021-11-12 10:15 | NUR ---
Echocardiogram completed.
--- NOTE | 2021-11-12 10:15 | NUR ---
Spiritual Care request. Pt. is awake in bed and welcomes my visit. Pt. is a new admit overnight. Pt. displayed evidence of confusion. Pt. also displayed evidence of being uncomfortable in her bed. Prayer seemed to be what the pt. desired the most. Prayed with Pt. Pt. displayed evidence of engagement, but still displayed evidence of confusion.
[2021-11-12 11:10] LABS: Source, Urine Straight Cath
[2021-11-12 11:16] LABS: Appearance, Urine Clear (Clear); Bilirubin, Urine Neg (Neg); Blood, Urine Neg (Neg); Color, Urine Yellow (P-Yellow); Glucose Qualitative, Urine Neg (Neg); Ketones, Urine 1+ (Neg); Leukocyte Esterase, Urine Neg (Neg); Nitrite, Urine Neg (Neg); Protein, Urine Neg (Neg); Urobilinogen, Urine NORM (Normal)
[2021-11-12 11:34] LABS: U Amphetamine Screen Not Detected; U Barbituate Screen Not Detected; U Benzodiazapine Screen DETECTED; U Buprenorphine Screen Not Detected; U Cannabinoids Screen Not Detected; U Cocaine Screen Not Detected; U Methadone Screen Not Detected; U Methamphetamine Screen Not Detected; U Opiates Screen DETECTED; U Oxycodone Screen Not Detected; U Phencyclidine Screen Not Detected; U Propoxyphene Screen Not Detected
--- NOTE | 2021-11-12 14:43 | NUR ---
UPDATE: ASSUMED CARE OF PT AT 0700. 0700: PT DROWSY, ORIENTED TO SELF, FAMILY, PLACE AND FOLLOWING DIRECTIONS. PT CONFUSED ON TIME/SITUATION. PT ON 2L/MIN OF 02 VIA NC, WITH SPO2 ABOVE 90% PT IN SR WITH HR IN THE 70'S, BP SOFT. NO URINE OUTPUT NOTED. 1030: CALLED REGARDING LOW BP 60/40'S, AND DECREASED LOC, PT LETHARGIC. ORDERS FOR 1 LITER OF LR GIVEN, IMPROVEMENT NOTED. 1100: /SARAI AT BEDSIDE, ASSESSING PATIENT. ORDERS FOR MURCIA GIVEN, 16F TEMP MURCIA INSERTED, TEMP 96.4, BEAR HUGGER APPLIED. 1348: CALLED REGARDING LOW BP 60/40'S, ORDERS TO GIVE 1 LITER OF LR. LABS ORDERED. BEAR TARIQGGER D/C'd TEMP 97.5. ORDERS FOR A PICC GIVEN. LEVOPHED ORDER PLACED TO MAINTAIN MAP ABOVE 60, PER .
[2021-11-12 14:47] LABS: Hematocrit 23.2 % (33.0-51.0); Hemoglobin 7.1 g/dL (11.5-16.0)
--- NOTE | 2021-11-12 14:48 | NUR ---
Spiritual Care nurse referral. Pt. is in bed, NOK (Belinda - Daughter) is present. The family just recently chose DNR and the Pts. daughter is having a difficult time with the decision. Pts. daughter is grieving appropriately but displays evidence of not grasping the details of a DNR decision. Daughter is cathartic. Pastoral work counselor is given with a calming presence. Daughter requested that their car sales representative be contacted. This aerosol supervisor contacted the [facility], and requested on behalf of the family for a Pastoral visit. Both Pt. and daughter verbalized gratitude for the spiritual care visit.
[2021-11-12 15:27] LABS: Creatine Kinase MB 6.2 ng/mL (0.0-3.6); Creatine Kinase MB Index 2.8 (0.0-4.0)
--- NOTE | 2021-11-12 18:17 | NUR ---
SHIFT SUMMARY: SEE PREVIOUS NOTES. PT IS ALERT AND ORIENTED TO SELF/FAMILY/PLACE, PT FOLLOWING COMMANDS AND COMMUNICATING NEEDS. PT DENIED PAIN AT THIS TIME. NO SEIZURE ACTIVITY NOTED THIS SHIFT. PT REMAINS ON RA WITH SPO2 ABOVE 90% NO RESP DISTRESS NOTED. PT HAS BEEN IN SR WITH HR IN THE 70-80'S, BP HAS IMPROVED. LEVOPHED WAS NOT STARTED. PT'S ABD IS SOFT AND NON-DISTENDED, NO BM THIS SHIFT. PT SITTING UP EATING DINNER AT THIS TIME. MURCIA PATENT, DRAINING TO GRAVITY. WILL CONTINUE TO MONITOR PT UNTIL REPORT IS GIVEN TO ONCOMING SHIFT.
--- NOTE | 2021-11-13 04:16 | NUR ---
MIDLINE DRESSING CHANGED AND REINFORCED. PT PULLED ON MIDLINE - TUBING CAME UNDONE & OZZING AT SITE. USING STERILE TECHNIQUE DRESSING AND TUBING CHANGED WITH ASYA RESENDEZ.
--- NOTE | 2021-11-13 05:52 | NUR ---
PT RESTLESS/IMPULSIVE AT TIMES. A&OX3. DISORIENTED TO SITUATION. TUGGED HER MIDLINE TUBING OUT, REMOVING BP CUFF, O2 PROBE AND TELE LEADS OFF - UNABLE TO REDIRECT BEHAVIORS. CONTINUED REINFORCING EDUCATION. LEVO TITRATED OFF AT MIDNIGHT. WET COUGH - NON PRODUCTIVE ON RA. DENIES SOB. MURCIA FOR ACCURATE UO. TURNS SELF IN BED FREQUENTLY. HAKEEM DRESSING CHANGED ALONG WITH MIDLINE DRESSING AND TUBING. DAUGHTER CALLED AND UPDATED TWICE THIS SHIFT.
--- NOTE | 2021-11-13 07:46 | NUR ---
ASSUMED CARE NOTE ASSUMED CARE OF PT AT 0700. PT IS ALERT AND ORIENTED TO SELF. PT CONFUSED, PULLING ON LINES/CUFF/CLOTHING/GOWN. PT IS ABLE TO ANSWER YES/NO QUESTIONS, HOWEVER IS UNABLE TO RECALL RECENT EVENTS. PER NIGHT RN PT DID NOT SLEEP VERY WELL AND "SUNDOWNED" PT IS YAWNING FREQENTLY. CAM-ICU IS POSITIVE. PUPILS ARE EQUAL AND REACTIVE TO LIGHT. PT IS IN SR WITH HR IN THE 70'S, BP STABLE, MAP GREATER THAN 60. PT DENIES ANY NAUSEA/PAIN AT THIS TIME. MURCIA IS PATENT AND DRAINING CLEAR YELLOW URINE, MURCIA CARE PROVIDED. DENTURE CARE GIVEN, FACE CLEANSED AND PT WAS REPOSITIONED INTO HIGH FOWLERS FOR BREAKFAST. WILL CONTINUE TO MONITOR PT T/O SHIFT.
[2021-11-13 08:40] LABS: BASOPHILS ABSOLUTE AUTO 0.08 K/mm3 (0.00-0.23); BASOPHILS PERCENT AUTO 1 % (0-2); EOSINOPHILS ABSOLUTE AUTO 0.18 K/mm3 (0.00-0.68); EOSINOPHILS PERCENT AUTO 2 % (0-6); Hematocrit 23.9 % (33.0-51.0); Hemoglobin 7.4 g/dL (11.5-16.0); IMMATURE GRAN ABSOLUTE AUTO 0.24 K/mm3 (0.00-0.10); IMMATURE GRAN PERCENT AUTO 2 % (0-1); LYMPHOCYTES ABSOLUTE AUTO 0.83 K/mm3 (0.84-5.20); LYMPHOCYTES PERCENT AUTO 7 % (21-46); MONOCYTES ABSOLUTE AUTO 1.39 K/mm3 (0.16-1.47); MONOCYTES PERCENT AUTO 12 % (4-13); Mean Corpuscular HGB 23.8 pg (26.0-34.0); Mean Corpuscular Volume 77 fL (80-100); Mean Platelet Volume 10.1 fL (9.1-12.4); NEUTROPHILS ABSOLUTE AUTO 9.25 K/mm3 (1.96-9.15); NEUTROPHILS PERCENT AUTO 77 % (41-73); Platelet Count 260 K/mm3 (150-400); RDW Coefficient Variation 20.3 % (11.7-14.2); RDW Standard Deviation 57.1 fL (35.1-46.3); Red Blood Cell Count 3.11 M/mm3 (3.80-5.20); White Blood Cell Count 11.97 K/mm3 (4.00-11.30)
[2021-11-13 09:34] LABS: Alanine Aminotransfer (ALT/SGP <6 U/L (12-78); Albumin, Blood 2.2 g/dL (3.4-5.0); Albumin/Globulin Ratio 0.7 (0.8-1.8); Alk Phos 58 U/L (50-136); Anion Gap 8 mmol/L (6-16); Aspartate Aminotrans (AST/SGOT 21 U/L (12-37); Bilirubin, Total 0.5 mg/dL (0.1-1.0); Blood Urea Nitrogen 10 mg/dL (8-24); Bun/Creatinine Ratio 13.3 (12.0-20.0); CO2, Blood 26 mmol/L (21-32); Calcium, Blood 7.8 mg/dL (8.5-10.1); Chloride, Blood 102 mmol/L (98-108); Creatinine, Blood 0.75 mg/dL (0.40-1.00); Glomerular Filtration Rate 78 (60-); Glucose, Blood 66 mg/dL (70-99); Potassium, Blood 3.9 mmol/L (3.5-5.5); Sodium, Blood 136 mmol/L (136-145); Total Protein, Blood 5.2 g/dL (6.4-8.2)
--- NOTE | 2021-11-13 14:56 | NUR ---
UPDATE: AT 1339, PT HR DECREASED TO 49, PT SLEEPING. NOTIFIED, EKG ORDERED, IN CHART READ BY PHYSICIAN. PT'S BLOOD PRESSURE SLOWLY DECREASING, LEVOPHED STARTED BREIFLY TO MAINTAIN MAP ABOVE 60. WILL CONTINUE TO MONITOR.
--- NOTE | 2021-11-13 18:25 | NUR ---
SHIFT SUMMARY : SEE PREVIOUS NOTES. PT IS A/OX2, PT IS ANXIOUS. PT IS CONFUSED, HAVING VISUAL AND AUDITORY HALLUCINATIONS. PT C/O RESTLESS LEGS, MEDICATION GIVEN PER MAR. PT PULLING ON LINES/CORDS. PT ON/OFF LEVOPHED T/O SHIFT TO MAINTAIN MAP ABOVE 60, MD AWARE. PT IN SINUS ARRYTHMIA WITH HR IN THE 80'S, OCCASSIONAL PVC'S NOTED. PT ON RA WITH SPO2 ABOVE 90% NO RESP DISTRESS NOTED, DUO-NEBS INITIATED THIS SHIFT. PT HAS POOR PERFUSION, SPO2 IS DIFFICULT TO OBTAIN AT TIMES. PT ATE 75% OF BREAKFAST AND DINNER, NEEDS ASSISTANCE. SPEECH EVAL PLACED, SHE IS AT HIGH RISK FOR ASPIRATION. BOWEL TONES ACTIVE IN ALL QUADRANTS, NO BM THIS SHIFT. MURCIA PATENT, DRAINING TO GRAVITY. FAMILY MEMBERS STATE THAT PATIENT IS CONFUSED AT BASELINE, THAT SHE OFTEN "GETS HER NIGHTS AND DAYS MIXED UP" BECOMES UPSET WITH DAUGHTER GT WHEN SHE ATTEMPTS TO REORIENT THE PATIENT. ALSO HAS HISTORY OF DEMENTIA. BED AT LOWEST LEVEL, CALL LIGHT WITHIN REACH, BED ALARM IN PLACE.
[2021-11-13 20:19] LABS: Hematocrit 22.3 % (33.0-51.0)
--- NOTE | 2021-11-14 05:08 | NUR ---
SHIFT SUMMARY PT BECAMES INCREASING CONFUSED NIGHT PROGRESSED. ATTEMPTED TO EXIT BED THREE TIMES, PULLING OFF TELE LEADS, BP CUFF, & IV LINES. ATTEMPTED TO REDIRECT BEHAVIOR, DIVERT BEHAVIOR, REORIENTED TO REALITY & REINFORCED EDUCATION. UNSUCCESSFUL. RESTRAINTS & VEST INTIATED FOR PT SAFETY - DAUGHTER MADE AWARE & PT EDUCATED ON RESTRAINT USE. BP SUPPORTED ON LEVOPHED TITRATING UP. PT CONFUSED CALLING OUT "WHO IS IN THE KITCHEN... I'M AT BACK OF HOSPITAL." MEDS WITH APPLESAUCE. Q2 TURNS BONY PROMINENCES PROTECTED AND OFFLOADED. DAUGHTER VERBALIZED - PT SMOKES CIGRATTE AFTER CIGRATTE AT HOME.
--- NOTE | 2021-11-14 07:00 | NUR ---
ASSUME CARE: I have assumed care of this patient.
[2021-11-14 10:58] LABS: Hematocrit 22.6 % (33.0-51.0); Hemoglobin 7.2 g/dL (11.5-16.0)
--- NOTE | 2021-11-14 15:50 | NUR ---
NOREPI: Dr. Marquez called for new norepi order as RN is unable to titrated norepi off without hypotension.
[2021-11-14 16:51] LABS: Vancomycin, Trough 10.6 ug/mL (5.0-10.0)
--- NOTE | 2021-11-14 18:21 | NUR ---
SHIFT SUMMARY: NEURO: Pt alert to self, family, and surroundings. She is pleasantly confused and occasionally sees illusions with objects in the room. Moving all extremities. CARDIAC: Midodrine started today. Unable to titrate off norepi for an extended period of time. Norepi currently running at 2. RESPIRATORY: rhonchi throughout GI/: pt tolerating mechanical soft diet well. No BM today. Order for bowel meds obtained by provider. PSYCH/SOCIAL: Pt's family at bedside and supportive throughout the day. According to pt's older two daughters, pt lives with her who has demential. One older daughter, who lives in the same neighborhood, comes to help care for patient and occasionally her . Daughters note that pt will need additional support upon discharge as it has already become difficult to help care for her at home.
[2021-11-15 03:46] LABS: BASOPHILS ABSOLUTE AUTO 0.09 K/mm3 (0.00-0.23); BASOPHILS PERCENT AUTO 1 % (0-2); EOSINOPHILS ABSOLUTE AUTO 0.25 K/mm3 (0.00-0.68); EOSINOPHILS PERCENT AUTO 2 % (0-6); Hematocrit 20.4 % (33.0-51.0); Hemoglobin 6.6 g/dL (11.5-16.0); IMMATURE GRAN ABSOLUTE AUTO 0.28 K/mm3 (0.00-0.10); IMMATURE GRAN PERCENT AUTO 2 % (0-1); LYMPHOCYTES ABSOLUTE AUTO 1.03 K/mm3 (0.84-5.20); LYMPHOCYTES PERCENT AUTO 6 % (21-46); MONOCYTES PERCENT AUTO 14 % (4-13); Mean Corpuscular HGB Conc 32.4 g/dL (31.5-36.5); Mean Corpuscular Volume 74 fL (80-100); Mean Platelet Volume 10.3 fL (9.1-12.4); NEUTROPHILS ABSOLUTE AUTO 12.44 K/mm3 (1.96-9.15); NEUTROPHILS PERCENT AUTO 76 % (41-73); Platelet Count 381 K/mm3 (150-400); RDW Standard Deviation 54.9 fL (35.1-46.3); Red Blood Cell Count 2.75 M/mm3 (3.80-5.20); White Blood Cell Count 16.39 K/mm3 (4.00-11.30)
[2021-11-15 04:17] LABS: Alanine Aminotransfer (ALT/SGP <6 U/L (12-78); Albumin, Blood 2.1 g/dL (3.4-5.0); Albumin/Globulin Ratio 0.7 (0.8-1.8); Alk Phos 56 U/L (50-136); Anion Gap 6 mmol/L (6-16); Aspartate Aminotrans (AST/SGOT 23 U/L (12-37); Bilirubin, Total 0.5 mg/dL (0.1-1.0); Blood Urea Nitrogen 9 mg/dL (8-24); Bun/Creatinine Ratio 13.4 (12.0-20.0); CO2, Blood 30 mmol/L (21-32); Calcium, Blood 7.7 mg/dL (8.5-10.1); Chloride, Blood 95 mmol/L (98-108); Creatinine, Blood 0.67 mg/dL (0.40-1.00); Glomerular Filtration Rate 86 (60-); Glucose, Blood 75 mg/dL (70-99); Potassium, Blood 3.5 mmol/L (3.5-5.5); Sodium, Blood 131 mmol/L (136-145); Total Protein, Blood 5.1 g/dL (6.4-8.2)
[2021-11-15 04:46] LABS: Hematocrit 20.8 % (33.0-51.0); Hemoglobin 6.7 g/dL (11.5-16.0)
--- NOTE | 2021-11-15 04:57 | NUR ---
SHIFT SUMMARY CONFUSED AND DISORIENTED TO SITUATION OR PLACE. ATTEMPT TO EXIT BED AND LOUDLY CALLS FOR "ISRA" (SPOUSE). LEVOPHED TITRATED OFF. NON PRODUCTIVE COUGH. MURCIA FOR ACCURATE UO. VEST CONTINUED FOR PT SAFETY - FAMILY AT BEDSIDE AT SHIFT START VERBALIZED UNDERSTANDING FOR VEST USE. AM - MD BRITO NOTIFIED W/H&H RESULTS VERBAL ORDER TO TRANSFUSE 1 UNIT PRBC AND RECHECH AT 1000 AM.
--- NOTE | 2021-11-15 07:08 | NUR ---
ASSUME CARE: I have assumed care of this patient.
[2021-11-15 10:13] LABS: Hematocrit 26.2 % (33.0-51.0); Hemoglobin 8.7 g/dL (11.5-16.0)
--- NOTE | 2021-11-15 18:34 | NUR ---
SHIFT SUMMARY: Pt transitioned to PCU status today. NEURO: alert and oriented to self and family. Moving all extremities. She was given her PRN lyrica and sinamet for restless legs. Pt up in chair three times and worked with PT. CARDIAC: MAP above 60 all day on midodrine. SR on solar energy technician RESPIRATORY: rhonchorous throughout with intermittant wheezing GI/: no BM today. PRN senna given. Will pass off to night time babysitter. 1 liter out of flower. PSYCH/SOCIAL: family at bedside throughout the day and supportive of patient. Daughter, Belinda, asking for more help caring for patient at home upon discharge. She notes that pt has been a smoker for more than 50 years. Nicotine patch requested by MD at end of shift. Belinda also notes that pt takes 0.5 of xanax every night to sleep.
--- NOTE | 2021-11-15 19:00 | NUR ---
PROVIDER PHONE CALL: Dr. Hall called for nicotine patch and request for xanax order. Telephone order for both; hold xanax for SBP below 110.
--- NOTE | 2021-11-16 04:20 | NUR ---
PT ALERT TO SELF, PLACE AND FAMILY. RESTED OVERNIGHT. DENIED PAIN OR DISCOMFORT. NON PRODUCTIVE COUGH. TURNS SELF. STATED FEELING GOOD AND READY TO GO HOME.
[2021-11-16 05:02] LABS: BASOPHILS ABSOLUTE AUTO 0.12 K/mm3 (0.00-0.23); BASOPHILS PERCENT AUTO 1 % (0-2); EOSINOPHILS ABSOLUTE AUTO 0.24 K/mm3 (0.00-0.68); EOSINOPHILS PERCENT AUTO 2 % (0-6); Hematocrit 26.1 % (33.0-51.0); Hemoglobin 8.4 g/dL (11.5-16.0); IMMATURE GRAN ABSOLUTE AUTO 0.24 K/mm3 (0.00-0.10); IMMATURE GRAN PERCENT AUTO 2 % (0-1); LYMPHOCYTES ABSOLUTE AUTO 1.56 K/mm3 (0.84-5.20); LYMPHOCYTES PERCENT AUTO 10 % (21-46); MONOCYTES ABSOLUTE AUTO 2.02 K/mm3 (0.16-1.47); MONOCYTES PERCENT AUTO 13 % (4-13); Mean Corpuscular HGB 25.1 pg (26.0-34.0); Mean Corpuscular HGB Conc 32.2 g/dL (31.5-36.5); Mean Corpuscular Volume 78 fL (80-100); Mean Platelet Volume 10.5 fL (9.1-12.4); NEUTROPHILS ABSOLUTE AUTO 11.42 K/mm3 (1.96-9.15); NEUTROPHILS PERCENT AUTO 73 % (41-73); Platelet Count 422 K/mm3 (150-400); RDW Coefficient Variation 21.2 % (11.7-14.2); RDW Standard Deviation 58.4 fL (35.1-46.3); Red Blood Cell Count 3.34 M/mm3 (3.80-5.20)
[2021-11-16 05:49] LABS: Alanine Aminotransfer (ALT/SGP <6 U/L (12-78); Albumin, Blood 2.1 g/dL (3.4-5.0); Albumin/Globulin Ratio 0.7 (0.8-1.8); Alk Phos 54 U/L (50-136); Anion Gap 6 mmol/L (6-16); Aspartate Aminotrans (AST/SGOT 19 U/L (12-37); Bilirubin, Total 0.7 mg/dL (0.1-1.0); Blood Urea Nitrogen 10 mg/dL (8-24); Bun/Creatinine Ratio 13.6 (12.0-20.0); CO2, Blood 28 mmol/L (21-32); Calcium, Blood 7.9 mg/dL (8.5-10.1); Chloride, Blood 98 mmol/L (98-108); Creatinine, Blood 0.74 mg/dL (0.40-1.00); Globulin, Blood 3.2 g/dL (2.2-4.0); Glomerular Filtration Rate 80 (60-); Glucose, Blood 72 mg/dL (70-99); Potassium, Blood 3.7 mmol/L (3.5-5.5); Sodium, Blood 132 mmol/L (136-145); Total Protein, Blood 5.3 g/dL (6.4-8.2)
--- NOTE | 2021-11-16 08:50 | NUR ---
ASSUMED CARE / DR SARABIA: REPORT RECEIVED FROM SAHIL Rider RN. ASSUMED CARE OF THIS PT AT APPROX 0700. ON ASSESSMENT, THE PT AWAKENS EASILY TO VERBAL STIMULUS & IS ORIENTED TO SELF, FAMILY & FOLLOWING DIRECTIONS AT THAT TIME. LS DIM IN BASES, PT ON RA W/ O2 SATS > 92%. MONITOR SHOWS SR W/ HR 70-90s, BP STABLE. PT DENIES GI COMPLAINTS, TOLERATES PO INTAKE WELL. MURCIA REMOVED AT APPROX 0850 PER PROVIDER ORDER. SKIN CONDITION OVERALL FRAGILE W/ NUMEROUS AREAS OF SKIN TEARS & BRUISING. PROTECTIVE MEPILEX DRESSINGS CDI, Q2H REPOSITIONING TO MAINTAIN SKIN INTEGRITY. DR SARABIA HAS SEEN THE PT THIS AM & ORDERS MEDICAL STATUS W/ NO TELE. HE REQUESTS THAT MURCIA CATHETER ALSO BE D/C'd THIS AM, COMPLETED. NO OTHER CHANGES AT THIS TIME. WILL CONTINUE TO MONITOR & UPDATE NEEDED.
--- NOTE | 2021-11-16 12:23 | NUR ---
TRANSFER TO MEDICAL FLOOR: REPORT HAS BEEN GIVEN TO DIPTI MCDUFFIE TO ASSUME CARE. THE PT, CHART, MEDICATIONS & ALL BELONGINGS HAVE BEEN TAKEN TO ROOM 355 AT APPROX 1215 BY BASSAM PRICE. THE PT's DAUGHTER, MARIA E, HAS BEEN MADE AWARE OF TX & HAS GONE W/ PT TO NEW ROOM.
--- NOTE | 2021-11-16 17:59 | NUR ---
SHIFT SUMMARY PATIENT TRASNFERS FROM ICU AT 1215. PATIENT SETTLED INTO ROOM. PATIENT DAUGHTER AT BEDSIDE FOR TRANSFER. PATIENT DENIES PAIN, NAUSEA, AND SHORTNESS OF BREATH. PATIENT IS A 2P FOR TRANSFERS. PATIENT IS VERY FEARFUL OF FALLING. PATIENT WORKED WITH PT AND OT TODAY. RECOMMENDING SNF. PATIENT HAD MANY VISITORS TODAY. PATIENT IS EATING AND DRINKING WELL. MURCIA PULLED IN ICU THIS MORNING. PATIENT HAS NOT URINATED AT THIS TIME. BLADDER SCANNED WITH A RESULT OF 215MLS. WILL PASS ONTO NIGHTSHIFT. PATIENT IS PLEASANT AND COOPERATIVE WITH CARE.
[2021-11-17] MEDS ORDERED: CARBLEV25 PO (02:07)
[2021-11-17] MEDS ORDERED: HYDROCODONE-AC1 EA18 PO (02:08)
--- NOTE | 2021-11-17 02:36 | NUR ---
NURSE NOTE: JESSICA [facility] CONTACTED TO INFORM OF PT'S URINARY RETENTION. PRIOR MURCIA CATHETER REMOVED APPROXIMATELY 0900 IN ICU BEFORE TRANSFER, PT HAS HAD NO URINARY OUTPUT SINCE. CURRENT BLADDER SCAN READING 519 ML RETENTION, GAVE TELEPHONE ORDER TO PLACE MURCIA CATHETER.
[2021-11-17 03:13] LABS: Source, Urine Foley catheter
[2021-11-17 03:16] LABS: Bilirubin, Urine Neg (Neg); Blood, Urine Neg (Neg); Glucose Qualitative, Urine Neg (Neg); Ketones, Urine Neg (Neg); Leukocyte Esterase, Urine Neg (Neg); Nitrite, Urine Neg (Neg); Protein, Urine Neg (Neg); Specific Gravity, Urine 1.005 (1.003-1.022); Urobilinogen, Urine NORM (Normal)
[2021-11-17 03:37] LABS: Appearance, Urine Clear (Clear); Color, Urine Yellow (P-Yellow)
--- NOTE | 2021-11-17 05:12 | NUR ---
SHIFT SUMMARY: A/O X2-3, FORGETFULLNESS NOTED. PT APPEARS TO BE VERY WEAK AND LETHARGIC YET SEEMED VERY RESTLESS TONIGHT, APPEARED TO FIGHT SLEEP. PT STATED SEVERAL TIMES "I don't want to fall asleep, I'm scared to get more nightmares". PT CONTINUED TO APPEAR ANXIOUS THROUGHOUT THE NIGHT, NIGHT TIME DOSE OF XANAX DID NOT APPEAR TO EASE MUCH ANXIETY. REPORTED ANXIOUS STATE TO MD- NO ADDITIONAL ORDERS FOR ANXIETY MEDICATIONS GIVEN. PT HAS HAD 3 LARGE INCONTINENT BOWEL MOVEMENTS THROUGHOUT THE NIGHT. BLADDER SCAN READ 519ML RETENTION, MD GAVE ORDER TO PLACE MURCIA CATHETER DUE TO NO VOIDING SINCE THE REMOVAL OF PRIOR MURCIA APPROXIMATELY 0900 11/16. MURCIA IN PLACE, DRAINING WELL. BED ALARM ACTIVATED, CALL TUBBS AND BELONGINGS IN REACH, BED IN LOW POSITION.
[2021-11-17 05:53] LABS: BASOPHILS ABSOLUTE AUTO 0.15 K/mm3 (0.00-0.23); BASOPHILS PERCENT AUTO 1 % (0-2); EOSINOPHILS ABSOLUTE AUTO 0.25 K/mm3 (0.00-0.68); EOSINOPHILS PERCENT AUTO 1 % (0-6); Hematocrit 26.1 % (33.0-51.0); Hemoglobin 8.5 g/dL (11.5-16.0); IMMATURE GRAN ABSOLUTE AUTO 0.26 K/mm3 (0.00-0.10); IMMATURE GRAN PERCENT AUTO 1 % (0-1); LYMPHOCYTES ABSOLUTE AUTO 1.22 K/mm3 (0.84-5.20); LYMPHOCYTES PERCENT AUTO 6 % (21-46); MONOCYTES PERCENT AUTO 11 % (4-13); Mean Corpuscular HGB 25.7 pg (26.0-34.0); Mean Corpuscular HGB Conc 32.6 g/dL (31.5-36.5); Mean Corpuscular Volume 79 fL (80-100); Mean Platelet Volume 10.7 fL (9.1-12.4); NEUTROPHILS ABSOLUTE AUTO 17.07 K/mm3 (1.96-9.15); NEUTROPHILS PERCENT AUTO 80 % (41-73); Platelet Count 507 K/mm3 (150-400); RDW Coefficient Variation 21.7 % (11.7-14.2); RDW Standard Deviation 60.6 fL (35.1-46.3); Red Blood Cell Count 3.31 M/mm3 (3.80-5.20); White Blood Cell Count 21.35 K/mm3 (4.00-11.30)
[2021-11-17 06:09] LABS: Albumin, Blood 2.1 g/dL (3.4-5.0); Albumin/Globulin Ratio 0.7 (0.8-1.8); Bilirubin, Total 0.7 mg/dL (0.1-1.0); Bun/Creatinine Ratio 14.6 (12.0-20.0); Calcium, Blood 8.1 mg/dL (8.5-10.1); Creatinine, Blood 0.76 mg/dL (0.40-1.00); Globulin, Blood 3.2 g/dL (2.2-4.0); Potassium, Blood 3.5 mmol/L (3.5-5.5); Total Protein, Blood 5.3 g/dL (6.4-8.2)
--- NOTE | 2021-11-17 16:52 | NUR ---
SHIFT SUMMARY PATIENT MEDICATED FOR PAIN X1. PATIENT DENIES NAUSEA AND SHORTNESS OF BREATH. PATIENT IS A 2P STAND PIVOT TRANSFER. PATIENT COULD NOT WORK WITH THERAPY TODAY DUE TO FATIGUE. PATIENT DID NOT SLEEP LAST NIGHT PER REPORT FROM NIGHTSHIFT. PATIENT HAD LESS VISITORS THIS SHIFT AND PATIENT WAS ABLE TO SLEEP BETTER. PATIENT IS EATING AND DRINKING POOR, ASKED DIETARY TO ADD ENSURE TO EACH MEAL, PATIENT REALLY LIKES THEM. MURCIA IS PATENT AND DRAINING TO GRAVITY. PATIENT WAS A&O X3, BUT HAD OCCASSIONAL EPISODES OF CONFUSION. PATIENT SEEMED TO HAVE SOME HALLUCINATIONS, HEARING FAMILY IN HALLWAY WHEN NO FAMILY WAS HERE. PATIENT IS PLEASANT AND COOPERATIVE [facility].
--- NOTE | 2021-11-18 06:13 | NUR ---
SHIFT SUMMARY 86 YR F ADMITTED ON 11/11/21 FOR NSTEMI. DNR. PT APPEARS TO BE SUNDOWNING. AT START OF SHIFT SHE WAS COHERANT AND WITHIN A COUPLE OF HOURS SHE BECAME VERY CONFUSED AND WAS DEMANDING TO SEE CERTAIN PEOPLE THAT SHE KNOWS, STATING THAT SHE KNEW THEY WERE HERE AND WE (STAFF) WOULD NOT LET THEM IN. SHE DID SLEEP FOR A FEW HOURS AND WHEN SHE WOKE UP THIS MORNING SHE WAS FAR LESS CONFUSED. SHE DID NOT GET OUT OF BED AT ALL THIS SHIFT. BP WAS SOFT AT BEGINNING OF SHIFT BUT BY END OF SHIFT IT WAS BACK TO NORMAL.
[2021-11-18 08:24] LABS: BASOPHILS ABSOLUTE AUTO 0.11 K/mm3 (0.00-0.23); BASOPHILS PERCENT AUTO 1 % (0-2); EOSINOPHILS ABSOLUTE AUTO 0.23 K/mm3 (0.00-0.68); EOSINOPHILS PERCENT AUTO 2 % (0-6); Hemoglobin 8.2 g/dL (11.5-16.0); IMMATURE GRAN ABSOLUTE AUTO 0.21 K/mm3 (0.00-0.10); IMMATURE GRAN PERCENT AUTO 2 % (0-1); LYMPHOCYTES ABSOLUTE AUTO 1.83 K/mm3 (0.84-5.20); LYMPHOCYTES PERCENT AUTO 13 % (21-46); MONOCYTES ABSOLUTE AUTO 1.71 K/mm3 (0.16-1.47); MONOCYTES PERCENT AUTO 12 % (4-13); Mean Corpuscular HGB 25.5 pg (26.0-34.0); Mean Corpuscular HGB Conc 32.8 g/dL (31.5-36.5); Mean Corpuscular Volume 78 fL (80-100); Mean Platelet Volume 10.6 fL (9.1-12.4); NEUTROPHILS ABSOLUTE AUTO 10.15 K/mm3 (1.96-9.15); NEUTROPHILS PERCENT AUTO 71 % (41-73); Platelet Count 430 K/mm3 (150-400); RDW Coefficient Variation 22.1 % (11.7-14.2); RDW Standard Deviation 61.5 fL (35.1-46.3); Red Blood Cell Count 3.21 M/mm3 (3.80-5.20); White Blood Cell Count 14.24 K/mm3 (4.00-11.30)
[2021-11-18 08:44] LABS: Albumin, Blood 2.2 g/dL (3.4-5.0); Albumin/Globulin Ratio 0.7 (0.8-1.8); Bilirubin, Total 0.6 mg/dL (0.1-1.0); Bun/Creatinine Ratio 17.2 (12.0-20.0); Calcium, Blood 8.3 mg/dL (8.5-10.1); Creatinine, Blood 0.7 mg/dL (0.40-1.00); Globulin, Blood 3.1 g/dL (2.2-4.0); Potassium, Blood 3.6 mmol/L (3.5-5.5); Total Protein, Blood 5.3 g/dL (6.4-8.2)
[2021-11-18 12:06] LABS: SARS-Cov-2 (COVID-19) PCR, MMC NEGATIVE (NEGATIVE)
[2021-11-18] MEDS ORDERED: AMOCLA875 PO (12:25)
[2021-11-18] MEDS ORDERED: LEVE500 PO (12:26)
[2021-11-18] MEDS ORDERED: Nicoderm Cq1 EAC1 TOP (12:26)
[2021-11-18 13:16] LABS: Stool Occult Blood Guaiac 1 Neg (Neg)
--- NOTE | 2021-11-18 14:12 | NUR ---
SHIFT SUMMARY- PT CONFUSED BUT REDIRECTABLE AT TIMES. PT VSS. PT APPETITE OK. PT BM X2. PT WITH FAMILY IN ROOM. D/C- PT TRANSFERRED [place] [facility] [place] [facility] [facility] [place]SPORT WITH PAPERWORK. PT TOOK ALL BELONGINGS, VIA FAMILY.
== END 2021-11-18 13:56 | DRG 100 ==
LOC: ER 19:15 → ICUW 23:11 → ICUE 23:55 → EDBEDREQSVC 11-12 00:02 → EDBEDREQTM 11-12 00:02 → EDBEDREQ 11-12 00:02 → ICUW 11-12 07:35 → MEDS 11-16 12:15
PROVIDERS: Family Medicine; Hospitalist; Physician Assistant; Student in an Organized Health Care Education/Training Program; ADMIT Internal Medicine
PROC: 3E033XZ Introduction of Vasopressor into Peripheral Vein, Percutaneous Approach (ICD-10-PCS; principal; 2021-11-12)
DX: G40.409 Other generalized epilepsy and epileptic syndromes, not intractable, without status epilepticus (principal); G93.41 Metabolic encephalopathy; I21.A1 Myocardial infarction type 2; R65.10 Systemic inflammatory response syndrome (SIRS) of non-infectious origin without acute organ dysfunction; Z20.822 Contact with and (suspected) exposure to COVID-19; Z66 Do not resuscitate; I95.9 Hypotension, unspecified; D63.8 Anemia in other chronic diseases classified elsewhere; R32 Unspecified urinary incontinence; J44.9 Chronic obstructive pulmonary disease, unspecified; G25.81 Restless legs syndrome; F41.9 Anxiety disorder, unspecified; Z98.890 Other specified postprocedural states; Z91.013 Allergy to seafood; Z79.899 Other long term (current) drug therapy
CPT/HCPCS: 0241U; 36415; 36430; 51703; 70450; 71045; 80053; 80202; 81003; 82272; 82533; 82550; 82553; 83605; 83735; 83880; 84484; 85014; 85018; 85025; 85730; 86850; 86900; 86901; 86923; 87040; 92610; 93005; 93010; 93306; 94640; 94664; 94760; 95819; 97110; 97116; 97161; 97166; 97530; 97535; 99285-25; A9270; C1751; J0696; J1650; J1953; J2060; J2543; J3370; J7030; J7040; J7060; J7120; P9016; U0004

== ENCOUNTER 2021-12-21 09:33 | Inpatient (IN) | payer MEDICARE ==
[~2021-12-21] VITALS: Ht 157.5 cm; Wt 57.4 kg
[~2021-12-21 09:33] MED LIST changes: +CARBLEV25 PO; +HYDROCODONE-AC1 EA18 PO; +LEVE500 PO; +Nicoderm Cq1 EAC1 TOP
[2021-12-21 10:15] LABS: BASOPHILS ABSOLUTE AUTO 0.12 K/mm3 (0.00-0.23); BASOPHILS PERCENT AUTO 1 % (0-2); EOSINOPHILS ABSOLUTE AUTO 0.07 K/mm3 (0.00-0.68); EOSINOPHILS PERCENT AUTO 0 % (0-6); Hematocrit 25.5 % (33.0-51.0); Hemoglobin 7.9 g/dL (11.5-16.0); IMMATURE GRAN ABSOLUTE AUTO 1.08 K/mm3 (0.00-0.10); IMMATURE GRAN PERCENT AUTO 5 % (0-1); LYMPHOCYTES ABSOLUTE AUTO 0.83 K/mm3 (0.84-5.20); LYMPHOCYTES PERCENT AUTO 4 % (21-46); MONOCYTES ABSOLUTE AUTO 3.25 K/mm3 (0.16-1.47); MONOCYTES PERCENT AUTO 14 % (4-13); Mean Corpuscular HGB 24.5 pg (26.0-34.0); Mean Corpuscular Volume 79 fL (80-100); Mean Platelet Volume 10.1 fL (9.1-12.4); NEUTROPHILS ABSOLUTE AUTO 18.18 K/mm3 (1.96-9.15); NEUTROPHILS PERCENT AUTO 77 % (41-73); Platelet Count 617 K/mm3 (150-400); RDW Coefficient Variation 25.8 % (11.7-14.2); Red Blood Cell Count 3.22 M/mm3 (3.80-5.20); White Blood Cell Count 23.53 K/mm3 (4.00-11.30)
[2021-12-21 10:50] LABS: Ethanol (Alcohol), Blood, Med <3 mg/dL; Free Thyroxine 1.01 ng/dL (0.70-1.60); Triiodothyronine, Free 1.46 pg/mL (2.18-3.98)
[2021-12-21 10:52] LABS: Alanine Aminotransfer (ALT/SGP <6 U/L (12-78); Albumin, Blood 2.7 g/dL (3.4-5.0); Albumin/Globulin Ratio 0.7 (0.8-1.8); Alk Phos 58 U/L (50-136); Anion Gap 10 mmol/L (6-16); Aspartate Aminotrans (AST/SGOT 22 U/L (12-37); Bilirubin, Total 0.4 mg/dL (0.1-1.0); Blood Urea Nitrogen 20 mg/dL (8-24); Bun/Creatinine Ratio 22.9 (12.0-20.0); CO2, Blood 23 mmol/L (21-32); Calcium, Blood 8.2 mg/dL (8.5-10.1); Chloride, Blood 104 mmol/L (98-108); Creatinine, Blood 0.87 mg/dL (0.40-1.00); Globulin, Blood 3.8 g/dL (2.2-4.0); Glomerular Filtration Rate 66 (60-); Glucose, Blood 74 mg/dL (70-99); Sodium, Blood 137 mmol/L (136-145); Total Protein, Blood 6.5 g/dL (6.4-8.2)
[2021-12-21 12:21] LABS: Source, Urine Straight Cath
[2021-12-21 12:34] LABS: Appearance, Urine Hazy (Clear); Bilirubin, Urine Neg (Neg); Blood, Urine 1+ (Neg); Color, Urine Yellow (P-Yellow); Glucose Qualitative, Urine Neg (Neg); Ketones, Urine 2+ (Neg); Leukocyte Esterase, Urine Neg (Neg); Nitrite, Urine Neg (Neg); Protein, Urine 1+ (Neg); Specific Gravity, Urine 1.025 (1.003-1.022); Urobilinogen, Urine NORM (Normal)
[2021-12-21 12:58] LABS: Bacteria Few /hpf; Red Blood Cells, Urine 0-2 /hpf (0-2); Squamous Epithelial Cells Few /hpf (Few); White Blood Cells, Urine 0-2 /hpf (0-5); Yeast/Fungi Urine Many /hpf
[2021-12-21 13:14] LABS: U Amphetamine Screen Not Detected; U Barbituate Screen Not Detected; U Benzodiazapine Screen DETECTED; U Buprenorphine Screen Not Detected; U Cannabinoids Screen Not Detected; U Cocaine Screen Not Detected; U Methadone Screen Not Detected; U Methamphetamine Screen Not Detected; U Opiates Screen Not Detected; U Oxycodone Screen Not Detected; U Phencyclidine Screen Not Detected; U Propoxyphene Screen Not Detected
[2021-12-21 15:55] LABS: Automated CSF WBC Count 0.002 K/mm3 (0-5)
[2021-12-21 15:58] LABS: Automated CSF WBC Count 0.004 K/mm3 (0-5); WBC Count, CSF 4 /mm3 (0-5)
[2021-12-21 16:19] LABS: Glucose, CSF 53 mg/dL (40-70); RBC Count, CSF 9 /mm3 (0-0)
[2021-12-21 16:20] LABS: Appearance, CSF Clear (Clear); Color, CSF No Color (No Color)
[2021-12-21 16:26] LABS: RBC Count, CSF 36 /mm3 (0-0)
[2021-12-21 16:28] LABS: Appearance, CSF Clear (Clear); Color, CSF No Color (No Color)
[2021-12-21 16:37] LABS: WBC Count, CSF 2 /mm3 (0-5)
[2021-12-21 17:08] LABS: Percent Saturation 47.8 % (15.0-50.0)
[2021-12-21 17:10] LABS: Cryptococcus Neoformans/Gattii Not Detected (NOT DETECT); Enterovirus Not Detected (NOT DETECT); Escherichia Coli K1 Not Detected (NOT DETECT); Haemophilus Influenza Not Detected (NOT DETECT); Herpes Simplex Virus 1 Not Detected (NOT DETECT); Herpes Simplex Virus 2 Not Detected (NOT DETECT); Human Herpesvirus 6 Not Detected (NOT DETECT); Human Parechovirus Not Detected (NOT DETECT); Listeria Monocytogenes Not Detected (NOT DETECT); Neisseria Meningitidis Not Detected (NOT DETECT); Streptococcus Agalactiae Not Detected (NOT DETECT); Streptococcus Pneumoniae Not Detected (NOT DETECT); Varicella Zoster Virus Not Detected (NOT DETECT)
[2021-12-21 18:54] LABS: Source, Urine Foley catheter
[2021-12-21 18:56] LABS: Appearance, Urine Clear (Clear); Bilirubin, Urine Neg (Neg); Blood, Urine 1+ (Neg); Color, Urine Yellow (P-Yellow); Glucose Qualitative, Urine Neg (Neg); Ketones, Urine 2+ (Neg); Leukocyte Esterase, Urine Neg (Neg); Nitrite, Urine Neg (Neg); Protein, Urine Neg (Neg); Urobilinogen, Urine NORM (Normal)
--- NOTE | 2021-12-21 19:31 | NUR ---
END OF SHIFT/ASSUMPTION OF CARE: PATIENT HAS BEEN COMPLETELY UNALERT OR ORIENTED, HAS BEEN AGITATED YELLING OUT, PULLING AT LINES, PULLED AN IV IN THE ED. LR TO BE RUNNING, SPOKE WITH DR. DRUMMOND FOR MURCIA PALCEMENT TO PROTECT SKIN, UA SENT. PATIENT IS IN NO SIGN OF ACUTE PAIN OR DISTRESS HOWEVER, IS COMPLETELY COVERED THROUGHOUT WITH SKIN TEARS, BRUISES, SCRATCHES ESCIORIATIONS. PHOTOS TAKEN TO BE DOCUMENTED, CURRENLTY ON CAMERA NIGHT RN AWARE. PATIENT VITALS WERE STABLE ON ASSUMPTION, AND WAS MONITORED UNTIL SHIFT CHANGE.
[2021-12-21 19:33] LABS: Bacteria Few /hpf; Squamous Epithelial Cells Few /hpf (Few); White Blood Cells, Urine 0-2 /hpf (0-5); Yeast/Fungi Urine Many /hpf
[2021-12-22 04:27] LABS: BASOPHILS ABSOLUTE AUTO 0.08 K/mm3 (0.00-0.23); BASOPHILS PERCENT AUTO 0 % (0-2); EOSINOPHILS ABSOLUTE AUTO 0.04 K/mm3 (0.00-0.68); EOSINOPHILS PERCENT AUTO 0 % (0-6); Hematocrit 24.3 % (33.0-51.0); Hemoglobin 7.2 g/dL (11.5-16.0); IMMATURE GRAN ABSOLUTE AUTO 0.62 K/mm3 (0.00-0.10); IMMATURE GRAN PERCENT AUTO 3 % (0-1); LYMPHOCYTES ABSOLUTE AUTO 0.69 K/mm3 (0.84-5.20); LYMPHOCYTES PERCENT AUTO 4 % (21-46); MONOCYTES ABSOLUTE AUTO 3.22 K/mm3 (0.16-1.47); MONOCYTES PERCENT AUTO 18 % (4-13); Mean Corpuscular HGB 24.2 pg (26.0-34.0); Mean Corpuscular HGB Conc 29.6 g/dL (31.5-36.5); Mean Corpuscular Volume 82 fL (80-100); Mean Platelet Volume 10.8 fL (9.1-12.4); NEUTROPHILS ABSOLUTE AUTO 13.52 K/mm3 (1.96-9.15); NEUTROPHILS PERCENT AUTO 75 % (41-73); NRBC ABSOLUTE 0.02 K/mm3 (0.00-0.02); NRBC Auto 0.1 /100 WBC (0.0-0.2); Platelet Count 501 K/mm3 (150-400); RDW Coefficient Variation 25.8 % (11.7-14.2); RDW Standard Deviation 75.5 fL (35.1-46.3); Red Blood Cell Count 2.98 M/mm3 (3.80-5.20); White Blood Cell Count 18.17 K/mm3 (4.00-11.30)
[2021-12-22 04:39] LABS: Bun/Creatinine Ratio 17.4 (12.0-20.0); Calcium, Blood 7.7 mg/dL (8.5-10.1); Creatinine, Blood 0.75 mg/dL (0.40-1.00); Potassium, Blood 3.6 mmol/L (3.5-5.5)
--- NOTE | 2021-12-22 06:30 | NUR ---
PHARMACY TECHNICIAN PER DIEM SUMMARY PT IS ALERT TO SELF BUT NOT COMMUNICATING APPROPRIATELY W STAFF THIS SHIFT. PT BEGAN THE SHIFT W A BLOOD GLUCOSE OF 46 SO SHE WAS GIVEN AN AMP OF D50 WHICH BROUGHT HER CBG'S UP UNITL MIDNIGHT WHEN IT AGAIN DROPPED TO 50. A SECOND AMP OF D50 WAS GIVEN BUT THE PROVIDER WAS NOTIFIED AND THE PT WAS THEN PLACED ON D5W AT 75ML/HR. PT'S BP TRENDING DOWN THIS SHIFT W MAP <65 THIS AM SO PROVIDER NOTIFIED AND PO MIDODRINE WAS ORDERED. BEDSIDE SWALLOW EVAL DONE AND THE PT WAS ABLE TO TAKE THE MIDODRINE CRUSHED IN APPLESAUCE W/O DIFFICULTY. TELE SHOWING SR-ST 90'S-100'S. PT HAS NOT SLEPT AT ALL THIS SHIFT EITHER DUE TO NURSING INTERVENTION IN THE ROOM OR SHE IS TOSSING IN THE BED TALKING TO HERSELF AND LAUGHING. PT WAS PLACED IN SOFT WRSIT RESTRAINTS THIS SHIFT SHE WAS PULLING AT LINES AND HER MURCIA MULTIPLE TIMES. BNP DRAWN THIS AM CAME BACK AT 641 PROVIDER NOTIFIED AT TIME OF LOW BP SINCE SHE IS RECIEVING FLUIDS. O2 SATS >90% ON RM AIR ALTHOUGH SHE REMAINS VERY RHONCOROUS DESPITE RT NT SUCTIONING LARGE AMOUNTS OF THICK SPTUM FROM HER. SHE WAS PLACED ON HEATED HUMIDITY IN ATTEMPTS TO THIN SECRETIONS FOR SUCTIONING. NO BOWEL MOVEMENTS THIS SHIFT. PT REFUSING ORAL CARE THIS SHIFT. WILL REPORT TO ONCOMING RN.
[2021-12-22 16:00] LABS: Bun/Creatinine Ratio 17.7 (12.0-20.0); Calcium, Blood 7.9 mg/dL (8.5-10.1); Creatinine, Blood 0.68 mg/dL (0.40-1.00); Potassium, Blood 3.3 mmol/L (3.5-5.5)
--- NOTE | 2021-12-22 18:22 | NUR ---
SHIFT SUMMARY PT PLEASANTLY CONFUSED T/O THE SHIFT. SOFT BILAT WRIST IN USE DUE TO PULLING AT MURCIA AND IV AND DIFFICULTY WITH REDIRECTION. EEG COMPLETED TODAY. AWAITING RESULTS. POOR URINE OUTPUT T/O SHIFT. DR. DRUMMOND NOTIFIED OF ONLY 100CC OUTPUT AT 1400. ORDER TO MONITOR AND CHECK BMPP AT [address]MOND NOTIFIED OF LAB RESULTS AND THAT PT HAD ANOTHER 50CC OUTPUT. ORDER FOR OT 20MEQ KCL ORDERED, PLAN TO RECHECK BP & BLOOD GLUCOSE AT 1600. MURCIA FLUSHED AND NO CHANGE IN OUTPUT AT 1600. DR. DRUMMOND NOTIFED AT 1822 OF RESULTS. ORDER TO FINISH KCL AND TO GIVE LASIX AFTER FINISHED. BPS HAVE BEEN SOFT T/O SHIFT. MIDODRINE GIVEN ORDERED. D51/2NS INCREASED TO 100ML/HR. PLAN TO GET MRI COMPLETED TOMORROW. SCREENING FORM SENT TO IMAGING. DRESSINGS CHANGED TODAY ON ARMS AND SACRUM AND L POSTERIOR CALF. PT SEEN BY ST AND STARTED ON A PUREE DIET TODAY. TOLERATING WELL SO FAR IN SMALL AMOUNTS. GENERALLY MOIST BS. NO OTHER ACUTE CHANGES IN ASSESSMENT AT THIS TIME. VS REVIEWED. PT RESTING IN BED. AT BEDSIDE.
--- NOTE | 2021-12-22 23:13 | NUR ---
UPDATE PT'S O2 SATS DOWN TO 88% FROM 96%. PROVIDER NOTIFIED OF CHANGE AND THIS RN'S CONCERN FOR FLUID OVERLOAD THE PT IS RECIEVING CONTINUOUS FLUIDS W ELEAVATED BNP. PROVIDER ORDERED FOR FLUIDS TO BE DECREASED FROM 100ML/HR TO 75ML/HR AND GIVE ADDITIONAL 20MG LASIX. RT NOTIFIED AND SAW PT AT BEDSIDE. SOCIAL SERVICES EDUARDO NOTIFIED.
[2021-12-23 04:49] LABS: BASOPHILS PERCENT AUTO 1 % (0-2); EOSINOPHILS PERCENT AUTO 1 % (0-6); Hemoglobin 6.9 g/dL (11.5-16.0); IMMATURE GRAN ABSOLUTE AUTO 0.46 K/mm3 (0.00-0.10); IMMATURE GRAN PERCENT AUTO 2 % (0-1); LYMPHOCYTES ABSOLUTE AUTO 0.61 K/mm3 (0.84-5.20); LYMPHOCYTES PERCENT AUTO 3 % (21-46); MONOCYTES ABSOLUTE AUTO 2.97 K/mm3 (0.16-1.47); MONOCYTES PERCENT AUTO 14 % (4-13); Mean Corpuscular HGB 23.7 pg (26.0-34.0); Mean Corpuscular Volume 79 fL (80-100); Mean Platelet Volume 10.1 fL (9.1-12.4); NEUTROPHILS ABSOLUTE AUTO 17.32 K/mm3 (1.96-9.15); NEUTROPHILS PERCENT AUTO 80 % (41-73); Platelet Count 475 K/mm3 (150-400); RDW Coefficient Variation 26.1 % (11.7-14.2); RDW Standard Deviation 72.3 fL (35.1-46.3); Red Blood Cell Count 2.91 M/mm3 (3.80-5.20); White Blood Cell Count 21.66 K/mm3 (4.00-11.30)
[2021-12-23 05:05] LABS: Albumin, Blood 2.4 g/dL (3.4-5.0); Anion Gap 8 mmol/L (6-16); Blood Urea Nitrogen 9 mg/dL (8-24); Bun/Creatinine Ratio 17.9 (12.0-20.0); CO2, Blood 24 mmol/L (21-32); Calcium, Blood 7.3 mg/dL (8.5-10.1); Chloride, Blood 108 mmol/L (98-108); Glomerular Filtration Rate 92 (60-); Glucose, Blood 114 mg/dL (70-99); Phosphorus, Blood 2.2 mg/dL (2.5-4.9); Potassium, Blood 3.3 mmol/L (3.5-5.5); Sodium, Blood 140 mmol/L (136-145)
--- NOTE | 2021-12-23 05:38 | NUR ---
DISTRIBUTION ANALYST SUMMARY PT IS ALERT TO SELF ONLY. PT AT TIMES WILL FOLLOW COMMANDS AND AT OTHER TIMES REFUSE ALL CARE. PT HAS NOT SLEPT THIS SHIFT WHICH IS CONCERNING SHE DID NOT SLEEP THE PREVIOUS DAY OR NIGHT SHIFTS PER RN REPORT. O2 SATS >90% ON RM AIR BUT DID DROP DOWN IN THE NIGHT SO THE PROVIDER WAS CONTACTED AND NOTIFIED OF THIS RN'S CONCERN THAT THE PT WAS BEGINNING TO SHOW SIGNS OF FLUID OVERLOAD SO ORDERS TO SLOW D5W GTT AND GIVE ADDITIONAL 20MG LASIX WAS ORDERED. PT DID NOT RECIEVE THE ADDITIONAL LASIX DUE TO LOW BP. BP REMAINS LOW BUT STABLE W MAP >65. TELE SHOWING SR/ST 90'S-100'S W PVC'S. MURCIA PATENT AND DRAINING 950ML CLEAR YELLOW URINE THIS SHIFT. NO SEIZURE LIKE ACTIVITY THIS SHIFT. NO BM THIS SHIFT. WILL REPORT TO ONCOMING RN.
--- NOTE | 2021-12-23 07:36 | NUR ---
ASSUMED CARE OF PT AT [address] DRUMMOND NOTIFIED OF CRITICAL LAB VALUE, +BC AND NOC SHIFT RN CONCERN FOR FLUID OVERLOAD. PT BREATH SOUNDS CURRENTLY RHRONCOUS WITH A BECKY CONGESTED NONPRODUCTIVE COUGH. DR DRUMMOND STATES SHE WILL REVIEW PT'S CHART AND PLACE ORDERS IF NEEDED. PT RESTING QUIETLY AT THIS TIME IN BILATERAL SOFT WRIST RESTRAINTS, SEE DOCUMENTED VS. WILL ADMINISTER BLOOD PER MD ORDERS THIS AM. CAMERA MONITORING IN PLACE FOR PT'S SAFETY. BED ALARM ON. WILL CONTINUE TO ASSESS AND MONITOR.
--- NOTE | 2021-12-23 09:20 | NUR ---
AT APROX 0815 PT HAD BRADYCARDIA WITH A HR LOW 28 FOR ABOUT 1 MIN. PT'S CONDITION DID NOT APPEAR TO CHANGE DURRING THIS EPISODE WITNESSED BY THIS RN AT BEDSIDE. SPOKE WITH DR DRUMMOND AND ISRA FROM [facility] ABOUT PT'S CONDITION AND CODE STATUS. ISRA WILL BE CONTACTING PT'S FAMILY TO DISCUSS. NEW ORDERS RECEIVED FROM DR DRUMMOND. PT IS RECEIVING 1UNT PRBCs PER MD ORDERS. WILL CONTINUE TO ASSESS AND MONITOR.
--- NOTE | 2021-12-23 10:39 | NUR ---
Brief visit with Pt this AM. Pt appears weak, frail, and A&OX1. Moderate dyspnea noted. Spoke with Pt's Primary RN Rasheeda and Dr Reynoso. Discussed case and concerns. Family may benefit from goals of care discussion. Called and spoke with Pt's daughter Belinda and provided update. Discussed consideration of family meeting today. Belinda reports spouse is already on his way in and reports spouse suffers from early onset of dementia. Belinda reports she will contact her brother (Pt's son) and will contact Palliative Care on an approximate time they will arrive. Palliative Care will F/U with family regarding goals of care.
--- NOTE | 2021-12-23 10:49 | NUR ---
DR DRUMMOND NOTIFIED OF CXR AND MAG RESULTS. NEW ORDERS RECEIVED. UPDATED DR DRUMMOND THAT PT'S FAMILY WILL BE COMING IN TODAY TO HAVE A MEETING WITH PALLIATIVE CARE REGARDING PT'S PLAN OF CARE AND CODE STATES. PT CONTINUES TO HAVE VERY LABORED BREATHING WITH AUDIBLE RHRONCHI. BP/HR STABLE AT THIS TIME. BLOOD CONTINUES TO INFUSE WITHOUT ANY COMPLICATIONS NOTED. WILL CONTINUE TO ASSESS AND MONITOR.
--- NOTE | 2021-12-23 13:18 | NUR ---
Pt resting in bed with her eyes closed during visit. Pt's son Oli and Oli's spouse at bedside. Provided update and reviewed plan of care. Engaged in therapeutic conversation regarding goals of care. Educated on disease process including trajectory. Discussed options for care including current plan of care and considering comfort care. Listened as Oli reports Pt's spouse Ricardo suffers from Dementia and has poor memory and recall. He alos reports Pt's daughter Belinda has poor insight as well. Oli reports at one point he came to Pt's house with Pt being on the floor from falling. Pt's sister and spouse left Pt on the floor walking by as nothing was wrong. Continued active listening. Oli reports thinking that Pt would want to focus on comfort and would also want to be a DNR but is unsure how Pt's daughter Belinda and Pt's spouse Ricardo would think. He reports plan to discuss further with his brother (Pt's other son), Belinda, and Ricardo regarding goals of care. Ended visit as Oli is leaving. Pt's spouse arrives shortly after Oli leaves. Provided update to spouse Ricardo and attempted to discuss goals of care. Ricardo appears to struggle with processing information and understanding. Ended visit to allow spouse to visit with Pt. Palliative Care will remain available.
--- NOTE | 2021-12-23 17:09 | NUR ---
Joint visit with Dr Reynoso. Family at bedside. Dr Reynoso provides update and discusses options including comort care. It appears Pt's family is on board with comfort care with the exception of spouse who does suffer from some mild dementia. Spouse is agreeable for DNR status but would like to continue current treatment plan. Spouse appears to have a low level of understanding. Placed order for DNR in [facility] and ordered ethics consult per V/O from Dr Reynoso.
--- NOTE | 2021-12-23 18:02 | NUR ---
PALLIATIVE CARE AND DR DRUMMOND IN TO SPEAK WITH FAMILIY ABOUT GOALS OF CARE AND CODE STATES, SEE NOTES. PT IS NOW A DNR. NO FURTHER ACUTE EVENTS THIS SHIFT. WILL CONTINUE TO MONITOR AND GIVE REPORT TO NOC SHIFT RN.
[2021-12-24 04:22] LABS: BASOPHILS ABSOLUTE AUTO 0.08 K/mm3 (0.00-0.23); BASOPHILS PERCENT AUTO 0 % (0-2); EOSINOPHILS ABSOLUTE AUTO 0.19 K/mm3 (0.00-0.68); EOSINOPHILS PERCENT AUTO 1 % (0-6); Hematocrit 26.4 % (33.0-51.0); Hemoglobin 8.6 g/dL (11.5-16.0); IMMATURE GRAN ABSOLUTE AUTO 0.47 K/mm3 (0.00-0.10); IMMATURE GRAN PERCENT AUTO 2 % (0-1); LYMPHOCYTES PERCENT AUTO 3 % (21-46); MONOCYTES ABSOLUTE AUTO 2.31 K/mm3 (0.16-1.47); MONOCYTES PERCENT AUTO 11 % (4-13); Mean Corpuscular HGB 25.2 pg (26.0-34.0); Mean Corpuscular HGB Conc 32.6 g/dL (31.5-36.5); Mean Corpuscular Volume 77 fL (80-100); Mean Platelet Volume 9.8 fL (9.1-12.4); NEUTROPHILS ABSOLUTE AUTO 16.88 K/mm3 (1.96-9.15); NEUTROPHILS PERCENT AUTO 82 % (41-73); NRBC ABSOLUTE 0.02 K/mm3 (0.00-0.02); NRBC Auto 0.1 /100 WBC (0.0-0.2); Platelet Count 437 K/mm3 (150-400); RDW Coefficient Variation 23.5 % (11.7-14.2); RDW Standard Deviation 63.5 fL (35.1-46.3); Red Blood Cell Count 3.41 M/mm3 (3.80-5.20); White Blood Cell Count 20.63 K/mm3 (4.00-11.30)
[2021-12-24 04:46] LABS: Albumin, Blood 2.4 g/dL (3.4-5.0); Anion Gap 9 mmol/L (6-16); Blood Urea Nitrogen 8 mg/dL (8-24); Bun/Creatinine Ratio 10.9 (12.0-20.0); CO2, Blood 23 mmol/L (21-32); Calcium, Blood 7.6 mg/dL (8.5-10.1); Chloride, Blood 108 mmol/L (98-108); Creatinine, Blood 0.74 mg/dL (0.40-1.00); Glomerular Filtration Rate 80 (60-); Glucose, Blood 79 mg/dL (70-99); Phosphorus, Blood 2.8 mg/dL (2.5-4.9); Potassium, Blood 3.9 mmol/L (3.5-5.5); Sodium, Blood 140 mmol/L (136-145)
--- NOTE | 2021-12-24 05:46 | NUR ---
SHIFT SUMMARY PT ALERT, ORIENTED TO SELF. AFEBRILE. HR SR W/ PVC'S 80-90'S. BP STABLE. DENIES PAIN. ON 1L HEATED HUMIFIED HIFLO SATS OVER 95%. HIGH RR, > 20. COARSE LUNG SOUNDS THROUGHOUT. Q4 ORAL CARE AND Q2 TURNS. PT STRUGGLES TO LOOK COMFORTABLE, LEANS TOWARD RIGHT SIDE. MURCIA IN PLACE DRAINING YELLOW URINE TO GRAVITY. BUD PG DRAWS BLOOD. CBGS 79 AND 92 THIS AM. PT HAD POTENTIAL SEIZURE. STRONG TREMORS AND SHAKING OF EXTREMITIES. MEDICATED WITH ATIVAN FOR RELIEF. IN SOFT BILATERAL WRIST RESTRAINTS THROUGHOUT THE NIGHT. IN BED SLEEPING, WILL CONTINUE TO MONITOR UNTIL REPORT GIVEN TO DAYSHIFT DIPTI
--- NOTE | 2021-12-24 08:48 | NUR ---
Ethics consult order processed. 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 To prevent the extrication of lines, she is currently in soft bi-lateral restraints. According to provider attestation, and palliative care assessment, she satisfies hospice elegibility criteria for service enlistment. Her family has reached a concensus that this would be the most suitable and dignified approach. Her spouse has verbalized that he is not amenable to de-escalation of care. The principal does not have an advance directive or POLST on file. Speculation that the spouse is afflicted with mild dementia is noted. Based on these findings in aggregate, two options are herewith submitted: (1) if the provider witnesses to the fact that the spouse is compromised and nuerologically incapable of understanding and making medical decisions on behalf of his , then we can legally defualt to the family in [place] as the credible proxy network, or, (2) if the mental condition of the spouse is uncertain or unverified, then it would be recommended that the nearest family member pursue court appointed emergency guardianship, so that they can establish decisional prerogative. Please reach out if clarification is needed, or further follow up is desired. Thank you for this consult. Mo Mcgee, PhD, QUYNH fontanez
--- NOTE | 2021-12-24 11:30 | NUR ---
Multiple visits this AM. Pt resting in bed with eyes closed for most of visit. Pt does wake briefly and intermittently. Pt appears weak, frail, and is confused. Pt's son Oli and his at bedside. Provided update and offered active listening. Oli reports his brother Mo plans to visit sometime this AM. He also reports Pt's will probably visit around 1300. Spoke with Dr Maier earlier this AM and discussed case. Dr Maier plans to discuss with Pt's spouse regarding goals of care. Palliative Care will remain available.
--- NOTE | 2021-12-24 13:12 | NUR ---
Dr Maier in to visit with Pt and family. Dr Maier reviews with family Pt's condition and discusses comfort care. Family educated on comfort care philosophy with family being in agreement with moving forward with comfort care including Pt's spouse. Placed order for comfort care, comfort care order set, and D/C maintenance medications per V/O from Dr Maier. Spoke with Primary RN Rasheeda and discussed case. PPS 20% Palliative Care will remain available.
--- NOTE | 2021-12-24 14:35 | NUR ---
Spiritual Care Visit. Pt. is awake in bed and welcomes my visit. Many family members are present. Comfort Care was recently decided. Pt. is pleasant and displays evidence of being aware. Prayed with Pt. Pt. and family verbalized gratitude for the spiritual care visit. Will remain available as needed.
--- NOTE | 2021-12-25 07:25 | NUR ---
SHIFT SUMMARY: COMFORT CARE MEASURES CONTINUED. ROXANOL GIVING ADEQUATE PAIN RELIEF, ATIVAN ADMINISTERED X1 FOR INCREASED RESTLESSNESS. WOUND CARE COMPLETED FOR DRAINING WOUNDS ON ARMS. FAMILY AT BEDSIDE. AIRHUNGER NOTED AND INCREASED SECREATIONS- IMPROVEMENT WITH ATROPINE. BED ALARM ACTIVATED, BED IN LOW POSTION, CALL TUBBS AND BELONGINGS IN REACH.
--- NOTE | 2021-12-25 18:24 | NUR ---
SHIFT SUMMARY PATIENT ON COMFORT CARE. FAMILY AT BEDSIDE T/O SHIFT. RESTING COMFORTABLY FIRST HALF OF SHIFT NOT WAKING. AFTERNOON BEGAN MOANING AND REACHING OUT. MEDICATED FOR AIRHUNGER. EXCESSIVE SECRETIONS NOTED. ATTEMPTED SUCTIONING WITH ORAL CARE, PATIENT STILL SOUNDING GURGLY. MEDICATED PER MAR FOR SECRETIONS. REPOSITIONED Q2H. CATHETER CARE DONE. MURCIA CATHETER DRAINGING TO GRAVITY. WILL CONTINUE TO MONITOR.
--- NOTE | 2021-12-25 19:59 | NUR ---
SCRAP PREPARATION SUPERVISOR CALLED RN TO ROOM. PT FAMILY STEPPING OUT FOR SCRAP PREPARATION SUPERVISOR TO PERFORM CATH CARE. PT NOTED TO BE APNIC. BREATH SOUNDS ABSCENT. NO HEART SOUNDS AUSCULATED. ORIENTING RN TO BEDSIDE FOR CONFIRMATION. BE [place]. OLIVER FILTER OPERATOR NOTIFIED.
--- NOTE | 2021-12-25 21:14 | NUR ---
PT 1949. HOSPITALIST NOTIFIED. [facility] NOTIFIED FOR P/U.
--- NOTE | 2021-12-25 21:57 | NUR ---
CAYETANO GODFREY WITH [facility] PICKED UP PATIENT FOR TRANSPORT. ALL BELONGINGS REMOVED BY AND TAKEN HOME BY THE FAMILY.
== END 2021-12-25 21:58 | DRG 91 ==
LOC: ER 09:33 → MEDS 16:41 → PCU 16:41 → MEDS 12-24 21:43
PROVIDERS: Emergency Medicine; Internal Medicine; ADMIT Family Medicine
PROC: 009U3ZX Drainage of Spinal Canal, Percutaneous Approach, Diagnostic (ICD-10-PCS; principal; 2021-12-21)
PROC: 30233N1 Transfusion of Nonautologous Red Blood Cells into Peripheral Vein, Percutaneous Approach (ICD-10-PCS; 2021-12-21)
DX: G92.8 Other toxic encephalopathy (principal); E43 Unspecified severe protein-calorie malnutrition; J96.21 Acute and chronic respiratory failure with hypoxia; I50.33 Acute on chronic diastolic (congestive) heart failure; J44.9 Chronic obstructive pulmonary disease, unspecified; Z51.5 Encounter for palliative care; Z66 Do not resuscitate; F41.9 Anxiety disorder, unspecified; I73.9 Peripheral vascular disease, unspecified; G25.81 Restless legs syndrome; E16.2 Hypoglycemia, unspecified; I95.9 Hypotension, unspecified; D75.838 Other thrombocytosis; E83.39 Other disorders of phosphorus metabolism; R56.9 Unspecified convulsions; K21.9 Gastro-esophageal reflux disease without esophagitis; I77.1 Stricture of artery; D64.9 Anemia, unspecified; D72.828 Other elevated white blood cell count; R13.10 Dysphagia, unspecified; S00.03XA Contusion of scalp, initial encounter; E87.6 Hypokalemia; E83.42 Hypomagnesemia; E86.0 Dehydration; R62.7 Adult failure to thrive; M41.9 Scoliosis, unspecified; F17.210 Nicotine dependence, cigarettes, uncomplicated; R25.8 Other abnormal involuntary movements; E55.9 Vitamin D deficiency, unspecified; Z89.421 Acquired absence of other right toe(s); Z89.422 Acquired absence of other left toe(s); Z91.013 Allergy to seafood; Z79.899 Other long term (current) drug therapy; Z68.29 Body mass index [BMI] 29.0-29.9, adult
CPT/HCPCS: 36415; 36430; 51702; 62270; 70450; 71045; 80048; 80053; 80069; 81001; 82607; 82728; 82746; 82945; 82947; 83540; 83550; 83605; 83735; 83880; 84145; 84146; 84157; 84439; 84443; 84481; 85025; 86850; 86900; 86901; 86923; 87040; 87070; 87205; 87483; 89051; 92526; 92610; 93005; 93010; 94640; 94664; 94762; 95819; 96374; 96375; 99285-25; A9270; C9113; G0480; J0696; J1790; J1940; J1953; J2060; J2250; J3360; J3475; J3480; J7030; J7040; J7042; J7060; J7120; P9016